=== PATIENT | male | born 1935 | race Caucasian/White ===

== ENCOUNTER 2021-09-15 18:43 | Observation (INO) | payer MEDICARE, SELFPAY ==
--- NOTE | ~2021-09-15 | CT_ITS ---
EXAMINATION: CT brain wo con EXAM DATE: 09/16/2021 00:52 INDICATION: Dizziness. TECHNIQUE: Spiral CT of the head was performed without contrast. Axial, coronal and sagittal images were reviewed. The dose-length product (DLP) for this examination was 681.00 mGy-cm. The exposure w as tailored according to patient size, and iterative reconstruction (ASIR) was used as additional dos e reduction technique. There is no prior study for comparison. FINDINGS: There is no acute intraparenchymal hemorrhage. No evidence of intraparenchymal brain mass lesion. No evidence of acute infarction. There is no mass effect or midline shift. The ventricles are normal in size. There are no extra-axial collections. There are no acute calvarial fractures. T here is moderate cerebral atrophy. Patient has had bilateral ocular lens surgery. Soft tissue is unr emarkable. The visualized sinuses and mastoid air cells are well aerated. IMPRESSION: 1. No acute intracranial findings. Reviewed, dictated and finalized at location A. M PRESSER
--- NOTE | ~2021-09-15 | US_ITS ---
EXAMINATION: US carotid duplex BI DATE: 09/16/2021 12:51 INDICATION: Presyncope. Cerebral atherosclerosis. TECHNIQUE: Grayscale, color Doppler, and pulsed Doppler images of the cervical carotid arteries were obtained. The degree of vessel stenosis is placed in one of the following categories: normal, <50%, 5 0-69%, >=70% but less than near-occlusion, near-occlusion, or total occlusion. Note that percent sten osis relative to normal distal artery lumen diameter is indirectly measured from velocity measurement s as described by Jose A, et al. Radiology 2003; 229:340-346. COMPARISON: None. FINDINGS: RIGHT: The right common carotid artery (CCA) peak systolic velocity (PSV) is 92 cm/s. The right internal car otid artery (ICA) PSV is 49 cm/s. The right ICA end-diastolic velocity (EDV) is 15 cm/s. The right IC A/CCA PSV ratio is 0.5. Grayscale and color Doppler images yield an estimate of <50% diameter reducti on from plaque in the ICA. The external carotid artery (ECA) PSV is 64 cm/s. There is antegrade flow in the right vertebral artery. LEFT: The left CCA PSV is 53 cm/s. The left ICA PSV is 48 cm/s. The left ICA EDV is 10 cm/s. The left ICA/C CA PSV ratio is 0.9. Grayscale and color Doppler images yield an estimate of <50% diameter reduction from plaque in the ICA. The ECA PSV is 66 cm/s. There is antegrade flow in the left vertebral artery. IMPRESSION: 1. <50% stenosis in the right internal carotid artery. 2. <50% stenosis in the left internal carotid artery. Reviewed, dictated and finalized at location A. INUOUS IMPROVEMENT LEAD
--- NOTE | ~2021-09-15 | XR_ITS ---
EXAMINATION: XR chest 2V EXAM DATE: 09/16/2021 00:56 INDICATION: Dizziness, vertigo this evening. TECHNIQUE: Frontal and lateral projections of the chest obtained and reviewed. There is no prior dillon dy for comparison. FINDINGS: The lungs are hyperinflated which can be seen with chronic obstructive pulmonary disease ( a clinical diagnosis of functional impairment), but is not diagnostic of it. The lungs are clear. Th ere are no pleural effusions. The cardiomediastinal silhouette is within normal limits. There is no pneumothorax suspected. The bones and soft tissues are unremarkable. IMPRESSION: 1. No acute cardiopulmonary findings. 2. Hyperinflation. Reviewed, dictated and finalized at location A. TION CLASSIFIER
[2021-09-15 19:18] VITALS: BP 149/88; PULSE 78; RESP 20; TEMP 37.1; O2SAT 99
[2021-09-15 20:48] VITALS: BP 133/95; PULSE 73; RESP 17; TEMP 36.4; O2SAT 97
[2021-09-16] VITALS (13 sets, daily range): BP systolic 128–167; BP diastolic 82–97; PULSE 66–135; RESP 18–24; TEMP 36–36.8; O2SAT 96–100; BMI 24.9
--- NOTE | 2021-09-16 | ECHO_ITS ---
Patient Info Name: Glenn Jenkins Age: 86 years : 1935 Gender: Male Ht: 72 in Wt: 183 lbs BSA: 2.06 m2 BP: 167 / 95 mmHg Technical Quality: Fair Exam Date: 09/16/2021 11:32 AM Exam Location: [facility] Patient Status: Inpatient Admit Date: 09/16/2021 Staff Ordering Physician: Inocencio Parry Conveyor Installer: Sandhya Orozco RDCS Attending Provider: Marylin Ventura MD Referring Physician: Sohan MARIE; Exam Type: CA echo doppler w bubble study Study Info Indications R55 - Syncope and collapse Complete two-dimensional, color flow and Doppler transthoracic echocardiogram is performed with agitated saline. Contrast/Agitated Saline Contrast/Ag. Saline: Agitated Saline Amount: 30.00 ml Existing IV Access: Yes IV Access Condition: patent with no signs of infiltration Summary 1. LV size is at upper limits of normal, mild LVH; normal LV systolic function, ejection fraction approximately 55%; indeterminate diastolic function. Normal atrial size; no interatrial shunt on injection of agitated normal saline; image quality somewhat suboptimal. Normal mitral valve structure, no significant MR. Mild aortic valve sclerosis, no hemodynamically significant stenosis. Trace to mild aortic regurgitation. Unable to assess RVSP due to inadequate TR jet. Left Ventricle Left ventricular chamber dimension is normal. Left ventricular systolic function is normal, estimated at 50-55%. There is mildly increased left ventricular wall thickness. The left ventricular diastolic function is indeterminate. Right Ventricle Right ventricular chamber dimension is normal. Right ventricular systolic function is normal. Left Atria Left atrial chamber dimension is normal. Right Atria Right atrial chamber dimension is normal. Atrial Septum Intact interatrial septum visualized by agitated saline imaging. Aortic Valve There is mild aortic valve sclerosis. There is no aortic valve stenosis. There is trace aortic valve regurgitation. Pulmonic Valve The pulmonic valve is not well visualized. There is trace pulmonic regurgitation. Mitral Valve The mitral valve has normal leaflets. There is no mitral valve regurgitation. Tricuspid Valve The tricuspid valve leaflets are normal. There is trace tricuspid valve regurgitation. Pericardium/Pleural The pericardium appears normal. There is no pericardial effusion. Inferior Vena Cava Normal inferior vena cava with >50% collapse upon inspiration consistent with normal right atrial pressure, 10 mmHg. Aorta The aortic root size at the sinus of Valsalva is normal. Left Ventricular Outflow Tract Name Value Normal LVOT 2D LVOT Diameter 2.1 cm LVOT Doppler LVOT Peak Gradient 5 mmHg LVOT Mean Gradient 3 mmHg LVOT VTI 21 cm LVOT VTI/AV VTI Ratio 0.8 LVOT Stroke Volume 76 ml LVOT CO 5.6 l/min LVOT CI 2.7
--- NOTE | 2021-09-16 00:29 | ECG_ITS ---
Measurements Intervals [place] Rate: 63 P: -74 IA: 299 QRS: -75 QRSD: 158 T: 30 QT: 466 QTc: 480 Interpretive Statements SINUS RHYTHM WITH FIRST DEGREE AV BLOCK RIGHT BUNDLE BRANCH BLOCK LEFT ANTERIOR FASCICULAR BLOCK BASELINE ARTIFACT- I, II, III, AVR, AVL, AVF, V1-V2 ABNORMAL ECG Electronically Signed On 09-16-2021 6:19:07 CARD MOUNTER by Allan Saldana D.O.
--- NOTE | 2021-09-16 00:41 | ED.DIZZY ---
HPI - Dizziness General Chief Complaint: Dizziness <CARLA Yee Last Filed: 09/16/21 02:58> Stated Complaint: hypertension <CARLA Yee Last Filed: 09/16/21 02:58> Time Seen by Provider: 09/16/21 00:28 <CARLA Yee Last Filed: 09/16/21 02:58> Source: patient and family <CARLA Yee Last Filed: 09/16/21 02:58> Mode of arrival: wheelchair <CARLA Yee Last Filed: 09/16/21 02:58> Limitations: no limitations <CARLA Yee Last Filed: 09/16/21 02:58> History of Present Illness HPI Narrative: This is an 86-year-old male that presents to the emergency department for lightheadedness. Reports he had just finished dinner and stood up and felt lightheaded. He attempted to walk back to his room and had another episode of lightheadedness. He denies any associated symptoms. Denies fever, chest pain, shortness of breath, abdominal pain, vomiting, or dysuria. <CARLA Yee Last Filed: 09/16/21 02:58> Related Data Home Medications: Home Medications Medication Instructions Recorded Confirmed allopurinol 300 mg PO DAILY 09/16/21 aspirin 81 mg PO DAILY 09/16/21 atorvastatin 20 mg PO HS 09/16/21 losartan 50 mg PO DAILY 09/16/21 omeprazole 20 mg PO BID 09/16/21 rivaroxaban [Xarelto] 20 mg PO DAILY 09/16/21 <CARLA Yee Last Filed: 09/16/21 02:58> Allergies/Adverse Reactions: Allergies Allergy/AdvReac Type Severity Reaction Status Date / Time Penicillins Allergy Rash Verified 09/15/21 19:21 <CARLA Yee Last Filed: 09/16/21 02:58> Review of Systems Review of Systems: CONSTITUTIONAL: Denies fever CARDIOVASCULAR: Denies chest pain, palpitations RESPIRATORY: Denies dyspnea. GASTROINTESTINAL: Denies abdominal pain, nausea, vomiting GENITOURINARY: Denies dysuria NEUROLOGIC: Denies numbness, or weakness. <Claudia Spencer PA-C - Last Filed: 09/16/21 02:58> All systems reviewed & are unremarkable except as noted in HPI and below <Claudia Spencer PA-C - Last Filed: 09/16/21 02:58> [facility] Past Medical History Medical History: Medical History (Updated 09/16/21 @ 02:50 by Claudia Spencer PA-C) History of gastroesophageal reflux (GERD) History of hyperlipidemia <Claudia Spencer PA-C - Last Filed: 09/16/21 02:58> Social History Social History: Social History (Updated 09/16/21 @ 00:43 by Claudia Spencer PA-C) Smoking status: Never smoker <Claudia Spencer PA-C - Last Filed: 09/16/21 02:58> Exam Narrative: GENERAL: Well-appearing, well-nourished, and in no acute distress. HEAD: Normocephalic, atraumatic. EYES: PERRLA and EOMI. ENT: Nares clear, no rhinorrhea or epistaxis. Mucous membranes moist. Oropharynx without tonsillar hypertrophy exudate or other lesions. Bilateral TMs pearly rodney non-bulging NECK: Supple. No adenopathy or masses. CHEST: Clear to auscultation. No respiratory distress. No wheezes rales or rhonchi HEART: Regular rate and rhythm. No murmur heard. Normal peripheral pulses. ABDOMEN: Soft, nontender, nondistended, normal active bowel sounds. EXTREMITIES: Normal range of motion. No edema. SKIN: Warm, dry, no rash. NEURO: No focal deficits. Alert and oriented x3. Cranial nerves II through XII grossly intact. Normal [id number] PSYCH: Normal mood and affect <Claudia Spencer PA-C - Last Filed: 09/16/21 02:58> Course Vital Signs Vital signs: Vital Signs Temperature 37.1 C 09/15/21 19:18 Pulse Rate 78 09/15/21 19:18 Respiratory Rate 20 09/15/21 19:18 Blood Pressure 149/88 H 09/15/21 19:18 Pulse Oximetry 99 09/15/21 19:18 Temperature 36.4 C 09/15/21 20:48 Pulse Rate 83 09/16/21 03:26 Respiratory Rate 20 09/16/21 03:26 Blood Pressure 138/97 H 09/16/21 03:26 Pulse Oximetry 96 09/16/21 03:26 <Claudia Spencer PA-C - Last Filed: 09/16/21 02:58> MDM - Dizziness [facility] Narrative Med
[2021-09-16 01:26] LABS: Basophils Absolute Auto 0.1 K/mm3 (0.0-0.1); Basophils Percent Auto 1.1 % (0.2-1.2); Eosinophils Absolute Auto 0.4 K/mm3 (0-0.3); Eosinophils Percent Auto 4.6 % (0-4.4); Hematocrit 40.2 % (42.0-52.0); Hemoglobin 12.7 g/dL (14.0-18.0); Immature Granulocyte Absolute 0.02 K/mm3 (0.00-0.031); Immature Granulocyte Percent A 0.3 % (0-0.5); Lymphocytes Absolute Auto 1.26 K/mm3 (0.9-3.2); Lymphocytes Percent Auto 16.7 % (18.3-44.2); Mean Corpuscular HGB Conc 31.6 g/dl (32-36); Mean Corpuscular Hemoglobin 26.8 pg (26-34); Mean Corpuscular Volume 84.8 fl (80-100); Mean Platelet Volume 11.8 fl (7.4-10.4); Monocytes Absolute Auto 0.8 K/mm3 (0.1-0.6); Monocytes Percent Auto 10.8 % (2.6-8.5); Neutrophils Percent Auto 66.5 % (45.5-73.1); Platelet Count Result 197 k/mm3 (150-375); Red Blood Count 4.74 M/mm3 (4.6-6.20); White Blood Count 7.6 K/mm3 (4.5-10.0)
[2021-09-16 01:37] LABS: Alanine Aminotransferase 22 U/L (4-50); Albumin Level 4.1 g/dL (3.5-5.1); Alkaline Phosphatase 80 U/L (38-126); Anion Gap 11 mmol/L (8-16); Aspartate Amino Transferase 32 U/L (17-59); Bilirubin,Total 0.5 mg/dL (0.2-1.3); Blood Urea Nitrogen 24 mg/dL (9-20); Calcium 9.5 mg/dL (8.4-10.2); Carbon Dioxide 23 mmol/L (22-30); Chloride 106 mmol/L (98-107); Estimated CRCL calculation 65 ml/min; Estimated Glomerular Filt Rate > 60; Glucose 131 mg/dL (65-110); Potassium 3.5 mmol/L (3.4-5.0); Sodium 140 mmol/L (137-145)
[2021-09-16] MEDS: SODIUM CHLORIDE 0.9% IV 1,000 ML 999 ML IV CONT (03:30)
[2021-09-16 03:58] LABS: Add Urine Microscopic? YES; Appearance Urine Clear (Clear); Bilirubin Urine Negative (Negative); Blood Urine Negative (Negative); Color Urine Yellow (Yellow); Glucose Urine UA Negative (Negative); Ketones Urine Negative (Negative); Leukocyte Esterase Ur Negative LEU/UL (Negative); Nitrate Urine Negative (Negative); Protein Urine Negative (Negative); RBC Urine 0-2 /hpf (0-2); Specific Grav Ur 1.016 (1.001-1.035); Urobilinogen Urine Negative mg/dL (<2.0); WBC Urine 0-3 /hpf
[2021-09-16 04:39] LABS: SARS-CoV-2 RNA PCR Positive
--- NOTE | 2021-09-16 06:33 | ADMGEN ---
This patient, Glenn Jenkins, was admitted to 3 [facility] Surg Room 302-01. Patient/family oriented to hospital policies and general routines including ID bracelet, bed and alarms, visiting hours, pain management, procedures, bathroom and other care routines, personal items, smoking policy, room service/diet, and visiting hours. Information on how to activate the Rapid Response Team has been discussed. Patient/Family are encouraged to report perceived risks to care and to ask questions if they do not understand what they are told or what they should do.
[2021-09-16] MEDS: LACTATED RINGERS 1,000 ML 90 ML IV CONT (07:25)
--- NOTE | 2021-09-16 08:30 | PM.IMHP ---
H&P: HPI History of Present Illness Date/Time: 09/16/21 08:30 Chief Complaint: Lightheaded dizziness upon standing Narrative: Patient is a 86-year-old male with a past medical history of AFib, hypertension, pituitary tumor, Guerrier's esophagus, hyperlipidemia who presented to the ED after having a couple episodes of lightheadedness and dizziness at [facility]. According to the patient he was attempting to go back to his room from dinner when he got sick. Patient could go into details about really what happened however he did say he got a little lightheaded. Patient told me to call his daughter for further information. Patient's daughter Emily explained that the patient was going back to his room from dinner from the dining cooper when he stood up and got very lightheaded and dizzy. They sat him down and put him in a wheelchair take him up to his room in the got him to his room she asked them to take a blood pressure in at that time his blood pressure was 170/103. Emily stated that she did not think that he looked good and requested that the patient go to the ED. in the ED orthostatic blood pressures were positive according to the note in the ED record. However I am not seeing any orthostatic blood pressures noted in the chart. Emily did say that when patient was seen Cardiology that the advertising sales consultant increased his losartan to 100 mg p.o. daily and he passed out. His primary care provider decrease the dose back down to 50 mg p.o. daily. Blood pressure remains still high at 160 7/95 however this morning patient was unable to urinate. Patient stated that he felt like he had to go have a BM. And asked if he go to the bathroom. Patient was ambulated to the bathroom where he had a very large bowel movement. Patient stated that after the bowel movement he felt a whole lot better and did not feel dizzy when he stood nor did he have any issues of walking back to bed. It was also reported the patient had greater than 700 mL of urine in his bladder and was unable to void even with standing. Taylor catheter was inserted at this time for urinary retention. Patient has also been started on finasteride and a voiding trial will be performed in the morning. Labs seem to be stable at this time. Patient also tested positive for COVID-19 in the ED however chest x-ray does not show any signs of pneumonia. Emily stated the patient has been vaccinated x3 with Pfizer. Please also stated that the patient had tested positive at the beginning of August and was quarantined for 10 days at the alf and his last ate quarantine was September 12, 2021. Emily stated the patient had no issues with shortness of breath or COVID like symptoms throughout the entire time of quarantine. Patient currently also denies chest pain, nausea, vomiting, fevers, sweats, chills, abnormal swelling, palpitations, cough, weakness, fatigue, headache, numbness and tingling, visual changes or hearing changes. Patient did state that he gets a little short of breath however he states most of the time is with walking up and down stairs. Patient also stated that he has been having issues with diarrhea he has been going a little every day however after today's large bowel movement he feels a whole lot better than he has. Patient denies any falls or loss of consciousness through any of these events. Patient denies any stroke-like symptoms including weakness to 1 side, aphasia, or swallowing problems. Patient does admit to having memory problems however he stated that he usually has his and his daughter to help him however his about 5 months ago. Patient is being admitted under observation status. Review of Systems Review of Systems: All systems reviewed & are unremarkable except as noted in HPI and below [facility] Past Medical History Medical History (Updated 09/16/21 @ 10:57 by INDRA Kennedy) Afib Barretts esophagus BPH (benign prostatic hyperplasia) Gout History of gastroe
[2021-09-16] MEDS: RIVAROXABAN 20 MG TABLET PO (12:55)
[2021-09-16] MEDS: allopurinoL 300 MG TABLET PO (12:55)
[2021-09-16] MEDS: ASPIRIN 81 MG CHEWABLE TABLET PO (12:55)
[2021-09-16] MEDS: LOSARTAN POTASSIUM 50 MG TABLET PO (14:32)
[2021-09-16] MEDS: PANTOPRAZOLE 40 MG TABLET PO (16:37)
--- NOTE | 2021-09-16 18:36 | PC.NURSE ---
On 09/16/21, the student, [ Tita Lopez], provided care and completed [facility] documentation on this patient. I have reviewed the student's documentation and agree with the findings.
[2021-09-16] MEDS: ATORVASTATIN 20 MG TABLET PO (21:11)
[2021-09-17] VITALS: PULSE 92
[2021-09-17 04:00] VITALS: PULSE 92
[2021-09-17 05:45] VITALS: BP 150/84; PULSE 68; RESP 18; TEMP 36.6; O2SAT 99
[2021-09-17 06:34] LABS: Basophils Absolute Auto 0.1 K/mm3 (0.0-0.1); Eosinophils Absolute Auto 0.5 K/mm3 (0-0.3); Eosinophils Percent Auto 7.5 % (0-4.4); Hematocrit 37.2 % (42.0-52.0); Hemoglobin 11.9 g/dL (14.0-18.0); Immature Granulocyte Absolute 0.04 K/mm3 (0.00-0.031); Immature Granulocyte Percent A 0.6 % (0-0.5); Lymphocytes Absolute Auto 1.05 K/mm3 (0.9-3.2); Lymphocytes Percent Auto 15.1 % (18.3-44.2); Mean Corpuscular Hemoglobin 26.2 pg (26-34); Mean Corpuscular Volume 81.8 fl (80-100); Mean Platelet Volume 11.7 fl (7.4-10.4); Monocytes Absolute Auto 0.7 K/mm3 (0.1-0.6); Monocytes Percent Auto 10.2 % (2.6-8.5); Neutrophils Absolute Auto 4.6 K/mm3 (1.3-6.7); Neutrophils Percent Auto 65.6 % (45.5-73.1); Platelet Count Result 169 k/mm3 (150-375); Red Blood Count 4.55 M/mm3 (4.6-6.20)
--- NOTE | 2021-09-17 06:45 | P.DS_ITS ---
DS: Admitting Diagnosis Discharge Date 09/17/21 0645 Admitting Diagnosis Orthostatic Hypotension DS: Discharge Diagnosis Discharge Diagnosis (1) Dizziness and giddiness: Code(s): R42 - Dizziness and giddiness Status: Acute Assessment and Plan: * Reports lightheaded and dizziness with position changes * Education about slow and steady position changes * Orthostatic BP ordered * Echo showed EF 55% with left vent diastolic dysfunction indeterminate * Carotid <50% bilateral stenosis * Head CT shows no acute intracranial problems * PT/OT (2) Orthostatic hypotension: Code(s): I95.1 - Orthostatic hypotension Status: Acute Assessment and Plan: * Lay:154/84, Sittin/87, Standin/87 * Education about slow position changes * PT/OT (3) Hypertension: Code(s): I10 - Essential (primary) hypertension Status: Acute Assessment and Plan: * BP is 167/95 * Continue home losartan * Orthostatic pressures seen in the am * Trend blood pressure * Adjust therapy as indicated (4) BPH (benign prostatic hyperplasia): Code(s): N40.0 - Benign prostatic hyperplasia without lower urinary tract symptoms Status: Acute Assessment and Plan: * Unable to void * Bladder scan identified >700ml in the bladder * Urinary catheter installed * Trend urine output * voiding trial * Start finasteride 5mg PO daily (5) Gout: Code(s): M10.9 - Gout, unspecified Status: Acute Assessment and Plan: * No issues noted at this time * Continue home medications (6) 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 Fib * Bleeding precautions (7) Afib: Code(s): I48.91 - Unspecified atrial fibrillation Status: Inactive Assessment and Plan: * EKG on arrival showed SR * History of A. Fib * Sees cardiology at [facility] * Telemonitor (8) COVID-19: Code(s): U07.1 - COVID-19 Status: Acute Assessment and Plan: * Test positive at the [facility] beginning of [facility] * History of COVID-19 * Completed 10 days of isolation at the [facility] with last day being 09/12/21 * Vaccinated x 3 with pfizer * Test positive here, most like residual * Chest xray shows no PNA * No need to isolate at this time * No need for supplemental O2, which includes no indication for treatment either DS: Summary Hospital Course Hospital Course: Patient is a 86-year-old male with a past medical history of AFib, hypertension, pituitary tumor, Guerrier's esophagus, hyperlipidemia who presented to the ED after having a couple episodes of lightheadedness and dizziness at [facility]. According to patient and the daughter the patient had an episode or 2 of dizziness lightheadedness upon standing. It was noted that his blood pressure was elevated. Orthostatic blood pressures were performed here and did show the patient does have a little bit of hypotension with position change however with standing his blood pressure only went to 128/87. Echo Doppler was performed and showed an EF of 50-55% with an indeterminate diastolic dysfunction. Carotid Doppler showed less than 50% stenosis bilaterally.
--- NOTE | 2021-09-17 06:45 | PM.DS ---
DS: Admitting Diagnosis Discharge Date 09/17/21 0645 Admitting Diagnosis Orthostatic Hypotension DS: Discharge Diagnosis Discharge Diagnosis (1) Dizziness and giddiness: Code(s): R42 - Dizziness and giddiness Status: Acute Assessment and Plan: Reports lightheaded and dizziness with position changes Education about slow and steady position changes Orthostatic BP ordered Echo showed EF 55% with left vent diastolic dysfunction indeterminate Carotid <50% bilateral stenosis Head CT shows no acute intracranial problems PT/OT (2) Orthostatic hypotension: Code(s): I95.1 - Orthostatic hypotension Status: Acute Assessment and Plan: Lay:154/84, Sittin/87, Standin/87 Education about slow position changes PT/OT (3) Hypertension: Code(s): I10 - Essential (primary) hypertension Status: Acute Assessment and Plan: BP is 167/95 Continue home losartan Orthostatic pressures seen in the am Trend blood pressure Adjust therapy as indicated (4) BPH (benign prostatic hyperplasia): Code(s): N40.0 - Benign prostatic hyperplasia without lower urinary tract symptoms Status: Acute Assessment and Plan: Unable to void Bladder scan identified >700ml in the bladder Urinary catheter installed Trend urine output voiding trial Start finasteride 5mg PO daily (5) Gout: Code(s): M10.9 - Gout, unspecified Status: Acute Assessment and Plan: No issues noted at this time Continue home medications (6) care home (current) use of anticoagulants: Code(s): Z79.01 - care home (current) use of anticoagulants Status: Acute Assessment and Plan: Continue Xarelto per home dose History of A. Fib Bleeding precautions (7) Afib: Code(s): I48.91 - Unspecified atrial fibrillation Status: Inactive Assessment and Plan: EKG on arrival showed SR History of A. Fib Sees cardiology at [facility] (8) COVID-19: Code(s): U07.1 - COVID-19 Status: Acute Assessment and Plan: Test positive at the [facility] living beginning of Aug History of COVID-19 Completed 10 days of isolation at the senior living with last day being 09/12/21 Vaccinated x 3 with pfizer Test positive here, most like residual Chest xray shows no PNA No need to isolate at this time No need for supplemental O2, which includes no indication for treatment either DS: Summary Hospital Course Hospital Course: Patient is a 86-year-old male with a past medical history of AFib, hypertension, pituitary tumor, Guerrier's esophagus, hyperlipidemia who presented to the ED after having a couple episodes of lightheadedness and dizziness at [facility]. According to patient and the daughter the patient had an episode or 2 of dizziness lightheadedness upon standing. It was noted that his blood pressure was elevated. Orthostatic blood pressures were performed here and did show the patient does have a little bit of hypotension with position change however with standing his blood pressure only went to 128/87. Echo Doppler was performed and showed an EF of 50-55% with an indeterminate diastolic dysfunction. Carotid Doppler showed less than 50% stenosis bilaterally. Patient was also unable to urinate and bladder scan was performed and showed greater than 700 mL in his bladder. Taylor catheter was installed and voiding trial was performed. According the patient it sounds like he has BPH with inability to start a good stream. He was also noted by his daughter the patient does have inability to urinate less standing. Patient also had a large bowel movement which he stated that has made him feel a lot better. PT and OT was ordered and had evaluated patient for mobility and are currently recommending a wheeled walker for further mobility at
[2021-09-17 06:54] LABS: Alanine Aminotransferase 19 U/L (4-50); Albumin Level 3.4 g/dL (3.5-5.1); Alkaline Phosphatase 59 U/L (38-126); Anion Gap 4 mmol/L (8-16); Aspartate Amino Transferase 27 U/L (17-59); Blood Urea Nitrogen 17 mg/dL (9-20); Calcium 8.5 mg/dL (8.4-10.2); Carbon Dioxide 29 mmol/L (22-30); Chloride 106 mmol/L (98-107); Estimated CRCL calculation 58 ml/min; Estimated Glomerular Filt Rate > 60; Glucose 126 mg/dL (65-110); Magnesium 2.1 mg/dL (1.6-2.3); Potassium 3.6 mmol/L (3.4-5.0); Sodium 139 mmol/L (137-145)
[2021-09-17 08:00] VITALS: BP 102/74; PULSE 63; PULSE 97; RESP 24; TEMP 36.2; O2SAT 99
[2021-09-17] MEDS: PANTOPRAZOLE 40 MG TABLET PO ×2 (08:38→16:30)
[2021-09-17] MEDS: LOSARTAN POTASSIUM 50 MG TABLET PO (08:38)
[2021-09-17] MEDS: allopurinoL 300 MG TABLET PO (08:38)
[2021-09-17] MEDS: RIVAROXABAN 20 MG TABLET PO (08:38)
[2021-09-17] MEDS: ASPIRIN 81 MG CHEWABLE TABLET PO (08:38)
[2021-09-17] MEDS: FINASTERIDE 5 MG TABLET PO (08:39)
[2021-09-17 14:00] VITALS: BP 115/79; PULSE 97; RESP 24; TEMP 36.2; O2SAT 99
[2021-09-17 14:10] VITALS: BP 115/75; BP 115/79
== END 2021-09-17 17:20 | disposition home or self-care (01) ==
LOC: ANHED 09-16 03:52 → ANH3MEDSUR 09-16 14:32
PROVIDERS: Nurse Practitioner; Physician Assistant; Admitting Provider Internal Medicine; Emergency Provider Emergency Medicine; PCP Family Medicine; Visit Provider Internal Medicine
DX: I95.1 Orthostatic hypotension (principal); R42 Dizziness and giddiness; U07.1 COVID-19; I48.91 Unspecified atrial fibrillation; E78.5 Hyperlipidemia, unspecified; I10 Essential (primary) hypertension; M10.9 Gout, unspecified; N40.0 Benign prostatic hyperplasia without lower urinary tract symptoms; Z79.01 Long term (current) use of anticoagulants; Z79.82 Long term (current) use of aspirin
CPT/HCPCS: 36415; 70450; 71046; 80053; 81001; 83735; 85025; 93005; 93306; 93880; 96360; 96361; 96375; 97161; 97165; 99285; A9270; C9803; G0378; J1940; J7030; J7040; J7120; U0003; U0005

== ENCOUNTER 2022-12-25 10:07 | Emergency (ER) | payer MEDICARE, SELFPAY ==
--- NOTE | ~2022-12-25 | XR_ITS ---
EXAMINATION: XR lumbar spine 2-3V DATE: 12/25/2022 13:32 INDICATION: Back pain. TECHNIQUE: 3 views of lumbar spine were obtained. COMPARISON: None. FINDINGS: Bone alignment is normal. Vertebral body heights are normal. There is mildly decreased disc height at T12-L1 and L1-L2. There is moderately decreased disc height at L4-L5 and severely decrease d disc height at L5-S1. There is multilevel mild to moderate facet joint osteoarthritis. IMPRESSION: 1. Severe lumbar spondylosis. Reviewed, dictated and finalized at location A.
--- NOTE | ~2022-12-25 | XR_ITS ---
EXAMINATION: XR hand RT min 3V DATE: 12/25/2022 13:31 INDICATION: Right hand swelling. TECHNIQUE: 3 views of right hand were obtained. COMPARISON: None. FINDINGS: Bone alignment is normal. No fracture. There is mild osteoarthritis of triscaphe joint, fir st severe osteoarthritis of first carpometacarpal joint, and moderate osteoarthritis of first-third m etacarpophalangeal joints. There is mild osteoarthritis of most of the interphalangeal joints. There is moderate at first interphalangeal joint and second and third distal interphalangeal joints. There are dystrophic calcifications about the wrist. IMPRESSION: 1. Polyarticular osteoarthritis. Reviewed, dictated and finalized at location A.
--- NOTE | ~2022-12-25 | CT_ITS ---
EXAMINATION: CT brain wo con INDICATION: Head injury COMPARISON: 09/16/2021 TECHNIQUE: Standard unenhanced head CT. The dose-length product (DLP) was 605.33 mGy-cm. The mA was a djusted according to patient size. Iterative reconstruction technique was employed. FINDINGS: There is no acute intraparenchymal hemorrhage. No evidence of mass lesion. No evidence of a cute infarction. There is mild periventricular and subcortical hypodensity probably related to small vessel ischemic disease. There is mild prominence of the sulci and ventricles related to cerebral atr ophy. Intracranial calcified cerebral atherosclerosis is noted. There are no extra-axial collections. There is no mass effect or midline shift. Changes in the globes are likely from ocular lens surgery. There is mild mucosal thickening of the paranasal sinuses. IMPRESSION: 1. No acute intracranial abnormality. 2. Age related findings. Reviewed, dictated and finalized at location B.
--- NOTE | ~2022-12-25 | XR_ITS ---
EXAMINATION: XR wrist RT min 3V DATE: 12/25/2022 13:32 INDICATION: Right wrist pain. TECHNIQUE: 4 views of right wrist were obtained. COMPARISON: None. FINDINGS: Bone alignment is normal. No fracture. There is mild osteoarthritis of triscaphe joint, sev ere osteoarthritis of first carpometacarpal joint, and moderate osteoarthritis of first-third metacar pophalangeal joints. There are dystrophic calcifications about the wrist. IMPRESSION: 1. Polyarticular osteoarthritis. Reviewed, dictated and finalized at location A.
--- NOTE | ~2022-12-25 | XR_ITS ---
AP and lateral views of the right femur Clinical History: Pain Findings: No acute fracture or dislocation is seen. Osseous alignment is anatomic. There is moderate degenerative change of the medial lateral compartments of the knee. There is probable chondrocalcinos is of the menisci. Basilar calcifications are noted. Impression: No fracture or dislocation. Degenerative change of the knee, as detailed above. 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 Reviewed, dictated and finalized at location M. Impression: No fracture or dislocation. Degenerative change of the knee, as detailed above. 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
[2022-12-25 10:09] VITALS: BP 129/79; PULSE 105; RESP 20; TEMP 36.4; O2SAT 99
--- NOTE | 2022-12-25 12:34 | ECG_ITS ---
Measurements Intervals [place] Rate: 80 P: 33 NM: 306 QRS: -77 QRSD: 148 T: 63 QT: 401 QTc: 465 Interpretive Statements SINUS RHYTHM WITH FIRST DEGREE AV BLOCK RIGHT BUNDLE BRANCH BLOCK [120+ ms QRS DURATION, UPRIGHT V1, 40+ ms S IN I/aVL/V4/V5/V6] LEFT ANTERIOR FASCICULAR BLOCK [QRS AXIS <= -45, QR IN I, RS IN II] COMPARED TO ECG 09/16/2021 01:12:19 NO SIGNIFICANT CHANGES Electronically Signed On 12-25-2022 13:51:45 CDT by Jeff Urban M.D.
--- NOTE | 2022-12-25 13:50 | ED.FALL ---
HPI - Fall General Chief Complaint: Fall Stated Complaint: fall, R. hand injury, back pain Time Seen by Provider: 12/25/22 11:52 Source: patient, family and RN notes reviewed Mode of arrival: ambulatory Limitations: no limitations History of Present Illness HPI Narrative: This is an 87 year old male who presents from [facility] for evaluation of right hand pain and back pain. He presents with her daughter who states patient fell on Wednesday. She states that patient has been having low back pain due to bend over to use his walker. His son adjusted his walker but patient was complaining of difficulty due to hand pain. Patient states that he fell on wednesday while getting cleaned up in the bathroom. He states that he was standing up in the bathroom when he slipped and his feet ended up under his bed. He has been walking around. He denies chest pain, rib pain, shortness of breath , back pain, abdominal pain, nausea or vomiting. He does reports right wrist and right hand pain. He does not think he hit his head but he is on chronic anticoagulation. Related Data Home Medications Medication Instructions Recorded Confirmed allopurinol 300 mg tablet 300 mg PO DAILY 09/16/21 09/16/21 aspirin 81 mg tablet 81 mg PO DAILY 09/16/21 09/16/21 atorvastatin 20 mg tablet 20 mg PO HS 09/16/21 09/16/21 losartan 50 mg tablet 50 mg PO DAILY 09/16/21 09/16/21 omeprazole 20 mg tablet,delayed 20 mg PO BID 09/16/21 09/16/21 release rivaroxaban 20 mg tablet (Xarelto) 20 mg PO DAILY 09/16/21 09/16/21 Allergies Allergy/AdvReac Type Severity Reaction Status Date / Time Penicillins Allergy Rash Verified 09/15/21 19:21 Review of Systems Constitutional: Constitutional: Denies weakness Cardiovascular: Cardiovascular: Denies syncope, Denies rapid heart rate, Denies irregular heart rhythm, Denies leg edema and Denies dyspnea Respiratory: Respiratory: Denies chest congestion, Denies hemoptysis, Denies excessive phlegm production and Denies dyspnea Gastrointestinal: Gastrointestinal: Denies abdominal pain, Denies hematochezia, Denies diarrhea and Denies vomiting Genitourinary: Genitourinary: Denies hematuria, Denies dysuria, Denies penile discharge and Denies testicular pain Musculoskeletal: Musculoskeletal: Reports back pain, Reports arthralgias, Denies joint swelling, Denies loss of height and Denies muscle weakness Neurologic: Denies syncope, Denies focal weakness and Denies weakness PMFSH Past Medical History Medical History Afib Barretts esophagus BPH (benign prostatic hyperplasia) Gout History of gastroesophageal reflux (GERD) History of hyperlipidemia Hypertension Pituitary tumor Family History Family History (Updated 09/16/21 @ 10:43 by INDRA Kennedy) Mother Heart disease Hypertension Father Hypertension Heart disease Social History Social History Social History: Patient currently lives at [facility] which he moved in about 5 months ago after his had . Patient appoints Emily as his main decision maker and wishes to be a full code at this time however would not like any life-sustaining measures taken. Emily is going to bring in her copy of advance directives. Patient denies any pets. Smoking status: Former smoker Alcohol intake: former Alcohol use details: quit 48 years ago Substance use: unknown Living arrangements: assisted living Occupation/Education: retired Gender identity (if verbalized by the patient): Male Sexual Orientation (if Verbalized by the Patient): Straight or Heterosexual Spiritual care concerns: No Agree to blood products: Yes Exam Const: General: no acute distress and alert Nutritional Appearance: well nourished Orientation/consciousness: patient oriented x3 HENMT: Head: normal to inspection Face and sinus: normal facial exam Eyes: EOM: E
[2022-12-25 13:51] LABS: Basophils Absolute Auto 0.1 K/mm3 (0.0-0.1); Basophils Percent Auto 0.8 % (0.2-1.2); Eosinophils Absolute Auto 0.1 K/mm3 (0-0.3); Eosinophils Percent Auto 1.5 % (0-4.4); Hemoglobin 13.6 g/dL (14.0-18.0); Immature Granulocyte Absolute 0.03 K/mm3 (0.00-0.031); Immature Granulocyte Percent A 0.4 % (0-0.5); Lymphocytes Absolute Auto 1.04 K/mm3 (0.9-3.2); Mean Corpuscular HGB Conc 33.2 g/dl (32-36); Mean Corpuscular Hemoglobin 28.6 pg (26-34); Mean Corpuscular Volume 86.3 fl (80-100); Mean Platelet Volume 11.1 fl (7.4-10.4); Monocytes Absolute Auto 0.8 K/mm3 (0.1-0.6); Monocytes Percent Auto 10.5 % (2.6-8.5); Neutrophils Absolute Auto 5.9 K/mm3 (1.3-6.7); Neutrophils Percent Auto 73.8 % (45.5-73.1); Platelet Count Result 180 k/mm3 (150-375); Red Blood Count 4.75 M/mm3 (4.6-6.20); Red Cell Distribution Width 15.2 % (11.5-14.5)
[2022-12-25 14:03] LABS: Alanine Aminotransferase 22 U/L (6-50); Albumin Level 3.9 g/dL (3.5-5.1); Alkaline Phosphatase 72 U/L (38-126); Anion Gap 8 mmol/L (8-16); Aspartate Amino Transferase 25 U/L (17-59); Bilirubin,Total 0.6 mg/dL (0.2-1.3); Blood Urea Nitrogen 28 mg/dL (9-20); Calcium 8.5 mg/dL (8.4-10.2); Carbon Dioxide 27 mmol/L (22-30); Chloride 104 mmol/L (98-107); Estimated CRCL calculation 57 ml/min; Estimated Glomerular Filt Rate > 60; Glucose 117 mg/dL (65-110); Potassium 3.8 mmol/L (3.4-5.0); Sodium 139 mmol/L (137-145)
[2022-12-25 15:26] LABS: Appearance Urine Clear (Clear); Bacteria Urine None Seen /hpf; Bilirubin Urine Negative (Negative); Blood Urine Negative (Negative); Color Urine Yellow (Yellow); Glucose Urine UA Negative (Negative); Ketones Urine Negative (Negative); Leukocyte Esterase Ur Negative LEU/UL (Negative); Nitrate Urine Negative (Negative); Non Pathogenic Casts 0-2; Protein Urine Trace mg/dL (Negative); RBC Urine 0-2 /hpf (0-2); Specific Grav Ur 1.016 (1.001-1.035); Squamous Epithelial Cell Urine None seen /hpf (Few); Urobilinogen Urine 0.2 mg/dL (<2.0); WBC Urine 0-5 /hpf; pH Urine 5.5 (5.0-9.0)
[2022-12-25 15:37] LABS: Add Urine Microscopic? YES
[2022-12-25] MEDS: COLCHICINE 0.6 MG TABLET 1.2 MG PO (16:10)
== END 2022-12-25 16:37 ==
PROVIDERS: Emergency Provider General Practice; PCP Student in an Organized Health Care Education/Training Program
DX: M54.50 Low back pain, unspecified (principal); M10.9 Gout, unspecified; I48.91 Unspecified atrial fibrillation; I10 Essential (primary) hypertension; E78.5 Hyperlipidemia, unspecified; N40.0 Benign prostatic hyperplasia without lower urinary tract symptoms; K22.70 Barrett's esophagus without dysplasia; K21.9 Gastro-esophageal reflux disease without esophagitis; Z87.891 Personal history of nicotine dependence; Z79.82 Long term (current) use of aspirin; Z79.01 Long term (current) use of anticoagulants; M47.816 Spondylosis without myelopathy or radiculopathy, lumbar region; I44.0 Atrioventricular block, first degree; I45.2 Bifascicular block; M19.041 Primary osteoarthritis, right hand; M18.9 Osteoarthritis of first carpometacarpal joint, unspecified; M19.031 Primary osteoarthritis, right wrist; R93.6 Abnormal findings on diagnostic imaging of limbs; W01.0XXA Fall on same level from slipping, tripping and stumbling without subsequent striking against object, initial encounter
CPT/HCPCS: 36415; 70450; 72100; 73110; 73130; 73552; 80053; 81001; 85025; 93005; 99284; A9270

== ENCOUNTER 2023-02-20 07:13 | Observation (INO) | payer MEDICARE, SELFPAY ==
[2023-02-20] VITALS (40 sets, daily range): BP systolic 107–150; BP diastolic 67–111; PULSE 72–111; RESP 13–30; TEMP 36.1–37; O2SAT 80–100; BMI 26.1
--- NOTE | ~2023-02-20 | CT_ITS ---
EXAMINATION: CT brain wo con DATE: 02/21/2023 07:41 INDICATION: Dizziness TECHNIQUE: Computed tomography (CT) of the head was performed without intravenous contrast. The mA wa s adjusted according to patient size. Iterative reconstruction technique was employed. Exam dose: 60 5.33 mGy-cm total exam DLP. COMPARISON: 12/25/2022 CT brain FINDINGS: Prominent bilateral carotid siphon internal carotid artery calcifications and mild vertebra l artery calcifications. There is nonspecific diminished attenuation of the cerebral white matter, li kerri due to chronic small vessel ischemic changes. There is prominent cerebral volume loss, moderately prominent cerebellar volume loss. No intracranial mass lesion or hemorrhage or cerebrovascular accident, midline shift or mass effect i s detected. No subdural or epidural hematoma. No fracture or bone destruction of the cranial vault. The mastoid air cells and paranasal sinuses are unremarkable. IMPRESSION: Cerebral and cerebellar atrophy Cerebral atherosclerosis and chronic small vessel ischemic changes of cerebral white matter No acute intracranial finding or significant change since 12/25/2022 Reviewed, dictated and finalized at Location A. Reviewed, dictated and finalized at location A.
--- NOTE | ~2023-02-20 | XR_ITS ---
XR chest 2V DATE: 02/20/2023 08:31 INDICATION: Cough, productive. Weakness. TECHNIQUE: AP and lateral views COMPARISON: September 16, 2021 2 view chest FINDINGS: There is cardiomegaly. Is aortic calcification, ectasia and tortuosity. No hilar or mediast inal enlargement. Moderate hyperinflation of the lungs. No pulmonary infiltrate or consolidation, pleural effusion or p ulmonary vascular congestion or pneumothorax. Degenerative spurring of the thoracic and lumbar spine. Osteopenia. IMPRESSION: Moderate hyperinflation; no active pulmonary disease Cardiac megaly and aortic atherosclerosis Reviewed, dictated and finalized at location A.
--- NOTE | ~2023-02-20 | US_ITS ---
EXAMINATION: US carotid duplex BI DATE: 02/21/2023 07:51 INDICATION: Dizziness. TECHNIQUE: Grayscale, color Doppler, and pulsed Doppler images of the cervical carotid arteries were obtained. The degree of vessel stenosis is placed in one of the following categories: normal, <50%, 5 0-69%, >=70% but less than near-occlusion, near-occlusion, or total occlusion. Note that percent sten osis relative to normal distal artery lumen diameter is indirectly measured from velocity measurement s as described by Jose A, et al. Radiology 2003; [id number]. COMPARISON: None. FINDINGS: RIGHT: The right common carotid artery (CCA) peak systolic velocity (PSV) is 66 cm/s. The right internal car otid artery (ICA) PSV is 39 cm/s. The right ICA end-diastolic velocity (EDV) is 15 cm/s. The right IC A/CCA PSV ratio is 0.6. Grayscale and color Doppler images yield an estimate of <50% diameter reducti on from plaque in the ICA. There is antegrade flow in the right vertebral artery. LEFT: The left CCA PSV is 61 cm/s. The left ICA PSV is 46 cm/s. The left ICA EDV is 17 cm/s. The left ICA/C CA PSV ratio is 0.7. Grayscale and color Doppler images yield an estimate of <50% diameter reduction from plaque in the ICA. There is antegrade flow in the left vertebral artery. IMPRESSION: 1. <50% stenosis in the right internal carotid artery. 2. <50% stenosis in the left internal carotid artery. Reviewed, dictated and finalized at location E.
--- NOTE | 2023-02-20 08:02 | ECG_ITS ---
Measurements Intervals [place] Rate: 79 P: 35 [place]: 305 QRS: -83 QRSD: 161 T: 13 QT: 435 QTc: 500 Interpretive Statements SINUS RHYTHM WITH SINUS ARRHYTHMIA MARKED WITH FIRST DEGREE AV BLOCK RIGHT BUNDLE BRANCH BLOCK LEFT ANTERIOR FASCICULAR BLOCK ABNORMAL ECG COMPARED TO ECG 12/25/2022 12:55:24 SINUS ARRHYTHMIA NOW PRESENT Electronically Signed On 02-20-2023 8:52:09 CDT by Allan Saldana D.O.
[2023-02-20 08:38] LABS: Magnesium 1.8 mg/dL (1.6-2.3)
[2023-02-20 08:39] LABS: Alanine Aminotransferase 28 U/L (6-50); Albumin Level 4.3 g/dL (3.5-5.1); Alkaline Phosphatase 75 U/L (38-126); Anion Gap 8 mmol/L (8-16); Aspartate Amino Transferase 34 U/L (17-59); Bilirubin,Total 1.1 mg/dL (0.2-1.3); Blood Urea Nitrogen 20 mg/dL (9-20); Calcium 8.8 mg/dL (8.4-10.2); Carbon Dioxide 27 mmol/L (22-30); Chloride 101 mmol/L (98-107); Estimated CRCL calculation 63 ml/min; Estimated Glomerular Filt Rate > 60; Glucose 163 mg/dL (65-110); Potassium 3.7 mmol/L (3.4-5.0); Sodium 136 mmol/L (137-145)
[2023-02-20 08:48] LABS: NT Pro B Type Natriuretic Pept 1340 pg/mL (19.9-100)
[2023-02-20 08:50] LABS: Basophils Absolute Auto 0.1 K/mm3 (0.0-0.1); Basophils Percent Auto 0.9 % (0.2-1.2); Eosinophils Absolute Auto 0.2 K/mm3 (0-0.3); Eosinophils Percent Auto 1.8 % (0-4.4); Hematocrit 41.8 % (42.0-52.0); Immature Granulocyte Absolute 0.05 K/mm3 (0.00-0.031); Immature Granulocyte Percent A 0.6 % (0-0.5); Lymphocytes Absolute Auto 0.75 K/mm3 (0.9-3.2); Lymphocytes Percent Auto 8.8 % (18.3-44.2); Mean Corpuscular HGB Conc 33.5 g/dl (32-36); Mean Corpuscular Hemoglobin 28.6 pg (26-34); Mean Corpuscular Volume 85.3 fl (80-100); Mean Platelet Volume 11.5 fl (7.4-10.4); Monocytes Absolute Auto 0.7 K/mm3 (0.1-0.6); Monocytes Percent Auto 7.7 % (2.6-8.5); Neutrophils Absolute Auto 6.9 K/mm3 (1.3-6.7); Neutrophils Percent Auto 80.2 % (45.5-73.1); Platelet Count Result 161 k/mm3 (150-375); Red Cell Distribution Width 14.5 % (11.5-14.5); White Blood Count 8.6 K/mm3 (4.5-10.0)
[2023-02-20] MEDS: FUROSEMIDE INJ 40 MG/4 ML VIAL 20 MG IV PUSH (10:25)
--- NOTE | 2023-02-20 10:30 | ED.GENADULT ---
HPI - General Adult General Chief complaint: Shortness of Breath/Dyspnea Stated complaint: dizzy Time Seen by Provider: 02/20/23 08:03 History of Present Illness HPI narrative: 87-year-old male with history of paroxysmal A-fib presenting with several days of generalized not feeling well he describes as a lack of pep. Per daughter at bedside, he is usually quite energetic, but he called the nurse at the intermediate last night stating that he really didn't feel too good. Per daughter at bedside he never complains so this was worrisome, and he was supposed to have cardiac testing etc but after his he put off all the testing. Related Data Home Medications Medication Instructions Recorded Confirmed allopurinol 300 mg tablet 300 mg PO DAILY 09/16/21 02/20/23 aspirin 81 mg tablet 81 mg PO DAILY 09/16/21 02/20/23 atorvastatin 20 mg tablet 20 mg PO HS 09/16/21 02/20/23 losartan 50 mg tablet 50 mg PO DAILY 09/16/21 02/20/23 omeprazole 20 mg tablet,delayed 20 mg PO BID 09/16/21 02/20/23 release rivaroxaban 20 mg tablet (Xarelto) 20 mg PO DAILY 09/16/21 02/20/23 Allergies Allergy/AdvReac Type Severity Reaction Status Date / Time Penicillins Allergy Rash Verified 02/20/23 07:30 Sulfa (Sulfonamide Allergy Hives Verified 02/20/23 07:30 Antibiotics) Review of Systems Review of Systems: CONST: Generalized weakness HEENT: No sore throat C/V: No chest pain RESP: No cough GI: No abdominal pain : No dysuria. M/S: Left wrist pain; legs feel heavy SKIN: No rash. NEURO: Some slight tingling to left wrist which resolved PSYCH: [No depression] [facility] Past Medical History Medical History (Updated 02/20/23 @ 16:16 by Sandy Peña MD) Barretts esophagus Benign prostatic hyperplasia Chronic anticoagulation Gastroesophageal reflux disease Gout Hyperlipidemia Hypertension Paroxysmal atrial fibrillation Pituitary tumor Surgical History Surgical History (Updated 02/20/23 @ 13:49 by Elida Peters PA-C) History of cataract extraction History of pituitary surgery Family History Family History Mother Heart disease Hypertension Father Hypertension Heart disease Social History Social History (Updated 02/20/23 @ 13:50 by Elida Peters PA-C) Social History: Surrogate medical decision maker: Emily Jenkins, daughter. Code status: Full code. Smoking status: Former smoker Alcohol intake: never Alcohol use details: quit 48 years ago Substance use: never Lack of Transportation: No Lack of Food: Never True Current Housing: I Have Housing Concerned About Future Housing: No Difficulty Paying Gas/Electric Bills: No Difficulty Paying for Meds: No Currently Unemployed: No Education: High School Diploma/GED Difficulty w/ Childcare or Family Care: No Living arrangements: assisted living Additional living arrangements comments: . Lives in assisted living at [facility]. Occupation/Education: retired Spiritual care concerns: No Agree to blood products: Yes Exam Narrative: EXAMINATION OF ORGAN SYSTEMS/BODY AREAS: Constitutional: Vital signs per nursing GENERAL:[No acute distress, non-toxic appearing.] HEAD: Normal with no signs of head trauma. EYES: EOMI, conjunctiva normal ENT: Hearing grossly intact LUNGS: Nonlabored breathing. HEART: [Regular rate and rhythm] ABD: [Soft], [nontender to palpation] EXT: Normal range of motion, some swelling bilateral arms worse L wrist without severe pain or tenderness with ROM SKIN: [No rashes or lesions.] NEURO: [Alert. No gross focal sensory or strength deficits.] PSYCH: Normal affect Course Vital Signs Vital signs: Vital Signs Temperature 98.6 F 02/20/23 07:23 Pulse Rate 100 02/20/23 07:23 Respiratory Rate 20 02/20/23 07:23 Blood Pressure 122/78 02/20/23 07:23 Pulse Oximetry 97 02/20/23 07:23 Oxygen Delivery Ro
[2023-02-20] MEDS: predniSONE 20 MG TABLET 40 MG PO (10:35)
[2023-02-20 11:22] LABS: Troponin I < 0.012 ng/mL (0.000-0.034)
[2023-02-20 12:12] LABS: Appearance Urine Clear (Clear); Bilirubin Urine Negative (Negative); Blood Urine Negative (Negative); Color Urine Yellow (Yellow); Glucose Urine UA Negative (Negative); Ketones Urine Negative (Negative); Leukocyte Esterase Ur Negative LEU/UL (Negative); Nitrate Urine Negative (Negative); Protein Urine Negative (Negative); Specific Grav Ur 1.008 (1.001-1.035); Urobilinogen Urine 0.2 mg/dL (<2.0)
--- NOTE | 2023-02-20 12:21 | PC.NURSE ---
This patient, Glenn Jenkins, was admitted to 2 Medical Room 240-01. Patient/family oriented to hospital policies and general routines including ID bracelet, bed and alarms, visiting hours, pain management, procedures, bathroom and other care routines, personal items, smoking policy, room service/diet, and visiting hours. Information on how to activate the Rapid Response Team has been discussed. Patient/Family are encouraged to report perceived risks to care and to ask questions if they do not understand what they are told or what they should do.
[2023-02-20 12:36] LABS: Add Urine Microscopic? NO
--- NOTE | 2023-02-20 13:39 | PM.IMHP ---
H&P: HPI History of Present Illness Date/Time: 02/20/23 13:00 Chief Complaint: Dizziness. Narrative: This is a very pleasant 87-year-old male with history of pituitary tumor status post resection, hypertension, hyperlipidemia, paroxysmal atrial fibrillation on chronic anticoagulation, valvular disease, gastroesophageal reflux disease, Guerrier esophagus, benign prostatic hyperplasia, and gout who presented to the emergency department via EMS from [facility] for evaluation of dizziness. The patient provides the following history though he does seem to have some memory issues and his son provides additional information with the patient's permission. Two nights ago he got up to use the bathroom and reports feeling a bit dizzy at that time. He did not necessarily feel as though he was going to pass out however he denies overt vertigo as well. By the time the morning came around he was feeling fine with regards to the dizziness however his left arm was sore and he reports having issues getting his left hand to do what he wanted it to do. Those symptoms seemed to pass quickly and he had an okay day. Last night he once again started to feel dizzy and this morning when he got ready for breakfast he tells me he was ?feeling out of sorts? but he cannot really elaborate on that. 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 Nursing staff apparently thought he seems short of breath however the patient adamantly denied that to me. He was brought in for evaluation and it looks like his vital signs were stable on arrival to the ED. CMP and CBC were pretty unremarkable. Chest x-ray showed no active pulmonary disease but did note showed moderate hyperinflation, cardiomegaly, and aortic atherosclerosis EKG showed a sinus rhythm with sinus arrhythmia and first-degree AV block, right bundle-branch block, and left anterior fascicular block. In the ED he was given a dose of IV furosemide and p.o. prednisone. He is being admitted in this setting for further treatment and evaluation. At the time my evaluation feels fine and has no active complaints. He denies current dizziness, vertigo, visual changes, facial droop, difficulty speaking and swallowing, focal weakness, paresthesias chest pain, pleuritic pain, palpitations, sensations of racing heart, shortness a breath, orthopnea, paroxysmal nocturnal dyspnea, nausea, vomiting, diarrhea, dysuria, and worsening lower extremity edema from baseline. Of note he is followed by a search engine optimization manager affiliated with [facility] and according to the son the patient has valvular disease and there had been discussions about him needing a pacemaker sometime in the future. Review of Systems Review of Systems: Twelve systems were reviewed and are negative except for as per HPI. [facility] Past Medical History Medical History Barretts esophagus Benign prostatic hyperplasia Chronic anticoagulation Gastroesophageal reflux disease Gout Hyperlipidemia Hypertension Paroxysmal atrial fibrillation Pituitary tumor Surgical History Surgical History (Updated 02/20/23 @ 19:59 by Elida Peters PA-C) History of cataract extraction History of partial thyroidectomy History of pituitary surgery Family History Family History Mother Heart disease Hypertension Father Hypertension Heart disease Social History Social History (Updated 02/20/23 @ 13:50 by Elida Peters PA-C) Social History: Surrogate medical decision maker: Emily Jenkins, daughter. Code status: Full code. Smoking status: Former smoker Alcohol intake: never Alcohol use details: quit 48 years ago Substance use: never Lack of Transportation: No Lack of Food: Never True Current Housing: I Have Hous
[2023-02-20] MEDS: PANTOPRAZOLE 40 MG TABLET PO (21:55)
[2023-02-20] MEDS: RIVAROXABAN 20 MG TABLET PO (21:56)
[2023-02-20] MEDS: ATORVASTATIN 20 MG TABLET PO (21:56)
[2023-02-21] VITALS (7 sets, daily range): BP systolic 129–157; BP diastolic 70–89; PULSE 61–101; RESP 18; TEMP 36.1–36.2; O2SAT 98–100
[2023-02-21 05:27] LABS: Hematocrit 40.5 % (42.0-52.0); Hemoglobin 13.6 g/dL (14.0-18.0); Mean Corpuscular HGB Conc 33.6 g/dl (32-36); Mean Corpuscular Hemoglobin 29.1 pg (26-34); Mean Corpuscular Volume 86.7 fl (80-100); Mean Platelet Volume 11.6 fl (7.4-10.4); Platelet Count Result 155 k/mm3 (150-375); Red Blood Count 4.67 M/mm3 (4.6-6.20); Red Cell Distribution Width 14.5 % (11.5-14.5); White Blood Count 9.4 K/mm3 (4.5-10.0)
[2023-02-21 05:47] LABS: Anion Gap 5 mmol/L (8-16); Blood Urea Nitrogen 24 mg/dL (9-20); Calcium 8.8 mg/dL (8.4-10.2); Carbon Dioxide 29 mmol/L (22-30); Chloride 101 mmol/L (98-107); Estimated CRCL calculation 57 ml/min; Estimated Glomerular Filt Rate > 60; Glucose 138 mg/dL (65-110); Magnesium 2.1 mg/dL (1.6-2.3); Sodium 135 mmol/L (137-145)
[2023-02-21] MEDS: POTASSIUM CHLORIDE 20 MEQ ER TABLET 40 MEQ PO ×2 (09:22→12:29)
[2023-02-21] MEDS: allopurinoL 300 MG TABLET PO (09:22)
[2023-02-21] MEDS: ASPIRIN 81 MG CHEWABLE TABLET PO (09:23)
[2023-02-21] MEDS: PANTOPRAZOLE 40 MG TABLET PO (09:23)
[2023-02-21] MEDS: LOSARTAN POTASSIUM 50 MG TABLET PO (09:23)
[2023-02-21 10:46] LABS: Hemoglobin A1C 6.7 % (<5.7)
--- NOTE | 2023-02-21 13:37 | PM.IMPN ---
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 Staff at his nursing facility thought he was short of breath as well however he adamantly denies that to me. Labs, imaging, EKG, and all reports were personally reviewed. Initial workup in the ED was pretty unremarkable. Given reports of shortness of breath he was given a dose of IV Lasix and p.o. prednisone in the ED though his history and physical findings do not suggest volume overload or bronchospasm. He does have mild lower extremity edema which she states is not unusual for him and in fact is better than baseline. He also denies feeling short of breath but again he seems a bit forgetful. Unfortunately it is difficult to say why he has been feeling dizzy as he has difficulties describing exactly what it is he has been feeling. Check orthostatic vital signs. Brain CT ordered to evaluate for possible CVA given the fact that he also had difficulties using his left hand for brief period of time yesterday as above. 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 Echo has been ordered for further evaluation. He is currently in a sinus rhythm. Blood pressures were reviewed and they have been stable. Initiate fall precautions. Check fasting glucose and hemoglobin A1c given elevated random glucose. His home medications will be reviewed and resumed as appropriate. Subjective Date/time seen: 02/21/23 13:37 Interval history: Admitted 02/20 after a vague staring spell witnessed by another facility resident but not recollected by the patient. He notes that he felt a little out of sync 02/20 because he did not have his usual AM defecation. However, after defecating today he feels fine. Tolerated breakfast and currently working with PT/OT w/o issues. Denied cp, sob, palpitations. Denied GI/ issues. Denied abnl bleeding. Denied focal weakness or numbness. Denied headache or dizziness. Review of Systems Review of Systems: All systems reviewed & are unremarkable except as noted in HPI and below Exam Narrative: HEENT: PERRL, sclerae nonicteric, pharyngeal mucosa pink and intact NECK: No JVD, adenopathy, or thyromegaly CHEST: Clear to auscultation. Normal effort. HEART: NL S1/S2, regular, no murmur ABDOMEN: BS+, soft, nontender, no mass, no bruits EXTREMITIES: No cyanosis, edema, or clubbing NEUROLOGIC: CN intact and symmetric to inspection. DTR's 2+ at BTK, absent at ankles. Tone and strength symmetric and intact. FTN intact. No fix or drift. Gait stable with walker. MUSCULOSKELETAL: Tone and strength symmetric. No tremor or rigidity. PSYCH: Alert. Oriented to person, knows he is in a hospital but not which one, thinks year is 2013 and does not know month. Objective Data Vital Signs Vital Signs: Vital Signs - 24 hr 02/20/23 14:00 02/20/23 16:00 02/20/23 19:21 Temperature 97.4 F L 97.6 F Pulse Rate 86 81 73 Respiratory Rate 18 18 Blood Pressure 150/88 H Pulse Oximetry 95 93 Oxygen Delivery 02/20/23 19:29 02/20/23 19:31 02/20/23 22:00 Temperature 97.7 F 97.3 F L 97
--- NOTE | 2023-02-21 14:46 | PM.DS ---
DS: Admitting Diagnosis Discharge Date 02/21/2023 Admitting Diagnosis Spell of undetermined etiology DS: Discharge Diagnosis Discharge Diagnosis (1) Dizziness: Code(s): R42 - Dizziness and giddiness Status: Acute (2) Cardiomegaly: Code(s): I51.7 - Cardiomegaly Status: Acute (3) Paroxysmal atrial fibrillation: Code(s): I48.0 - Paroxysmal atrial fibrillation Status: Acute (4) Chronic anticoagulation: Code(s): Z79.01 - [facility] (current) use of anticoagulants Status: Acute (5) Hypertension: Code(s): I10 - Essential (primary) hypertension Status: Acute (6) Benign prostatic hyperplasia: Code(s): N40.0 - Benign prostatic hyperplasia without lower urinary tract symptoms Status: Acute (7) Hyperglycemia: Code(s): R73.9 - Hyperglycemia, unspecified Status: Acute DS: Summary Hospital Course Hospital Course: This pleasant 87-year-old gentleman was admitted February 20 due to a spell that occurred during breakfast on that date. He was at assisted living facility and complained of not feeling well. He complained of some dizziness and purportedly of some shortness of breath although he later denied it. He also had some pain in left wrist. He has a history of acute gout in left wrist in the past. He had per did well with prednisone for a short period of time. He had been started on prophylactic allopurinol for that. He had no further spells during hospitalization. 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 He had a new sinus arrhythmia. On telemetry had no pauses and had frequent unifocal PVCs. He had no symptoms during hospitalization. On the date of discharge she felt much better and tolerated physical therapy and occupational therapy very well. He ambulated and engaged in conversation simultaneously without shortness of breath or dizziness. After detailed discussion at bedside with the patient and his daughter they elected to return to his assisted living facility on the day of discharge 02/21/2023. Labs are unremarkable including a stable hemoglobin of 13.6. Hemoglobin A1c was 6.7 consistent with impaired glucose tolerance. Creatinine was 0.9 BUN 24. Sodium was 136 and potassium 3.7 at admission. He did receive 1 dose of furosemide 20 mg IV in the emergency department and on the day of discharge his potassium was 3.0 he did receive 40 mEq of potassium p.o. twice prior to discharge. He had no arrhythmias associated with the mild hypokalemia. Chest x-ray was unremarkable. Magnesium was 2.[address] of the brain showed evidence for atherosclerosis and cerebral and cerebellar atrophy without acute changes of tumor stroke or bleed. He tolerated his diet well and was at his baseline mental status. He defecated and urinated independently without incontinence. His gait was stable with walker. Time Spent with Patient Time attestation: Total time spent providing and/or coordinating discharge services: Exam Narrative: HEENT: PERRL, sclerae nonicteric, pharyngeal mucosa pink and intact NECK: No JVD, adenopathy, or thyromegaly CHEST: Clear to auscultation. Normal effort. HEART: NL S1/S2, regular, no murmur ABDOMEN: BS+, soft, nontender, no mass, no bruits EXTREMITIES: No cyanosis, edema, or clubbing NEUROLOGIC: CN intact and symmetric to inspection. DTR's 2+ at BTK, absent at ankles. Tone and strength symmetric and intact. FTN intact. No fix or drift. Gait stable with walker. MUSCULOSKELETAL: Tone and strength symmetric. No tremor or rigidity. Mild increase in size of left wrist versus right with no erythema or tenderness. PSYCH: Alert. Oriented to person, knows he is in a hospital but not which one, thinks year is 2013 and does not know month. ? DS: Data Data Completed and Pending Labs on day of discharge: Labs from last 24 hours 02/21/23 04:50 WBC 9.4 RBC
== END 2023-02-21 15:55 ==
LOC: ANHED 08:03 → ANH2MED 12:23
PROVIDERS: Physician Assistant; Admitting Provider Internal Medicine; Emergency Provider Emergency Medicine; PCP Student in an Organized Health Care Education/Training Program; Visit Provider Internal Medicine
DX: R42 Dizziness and giddiness (principal); I48.0 Paroxysmal atrial fibrillation; I11.0 Hypertensive heart disease with heart failure; I50.9 Heart failure, unspecified; N40.0 Benign prostatic hyperplasia without lower urinary tract symptoms; R73.9 Hyperglycemia, unspecified; K22.70 Barrett's esophagus without dysplasia; K21.9 Gastro-esophageal reflux disease without esophagitis; R06.02 Shortness of breath; I44.0 Atrioventricular block, first degree; I45.2 Bifascicular block; G31.9 Degenerative disease of nervous system, unspecified; E78.5 Hyperlipidemia, unspecified; E23.7 Disorder of pituitary gland, unspecified; I70.0 Atherosclerosis of aorta; I45.10 Unspecified right bundle-branch block; M10.9 Gout, unspecified; R94.31 Abnormal electrocardiogram [ECG] [EKG]; Z86.39 Personal history of other endocrine, nutritional and metabolic disease; Z98.890 Other specified postprocedural states; Z87.891 Personal history of nicotine dependence; Z87.898 Personal history of other specified conditions; Z79.82 Long term (current) use of aspirin; Z79.01 Long term (current) use of anticoagulants; Z79.899 Other long term (current) drug therapy; Z82.49 Family history of ischemic heart disease and other diseases of the circulatory system
CPT/HCPCS: 36415; 70450; 71046; 80048; 80053; 81003; 83036; 83735; 83880; 84484; 85025; 85027; 93005; 93880; 96374; 97161; 99285; A9270; G0378; J1940; J7512

== ENCOUNTER 2023-08-19 19:00 | Emergency (ER) | payer MEDICARE, SELFPAY ==
--- NOTE | ~2023-08-19 | XR_ITS ---
EXAMINATION: XR ankle LT min 3V DATE: 08/19/2023 19:55 INDICATION: Left ankle pain. Fall. TECHNIQUE: 3 views of left ankle were obtained. COMPARISON: None. FINDINGS: Bone alignment is normal. No fracture. There is mild midfoot osteoarthritis. There are enth esophytes at the posterior and plantar aspects of calcaneal tuberosity. IMPRESSION: 1. Mild midfoot osteoarthritis. Reviewed, dictated and finalized at location E. EPSY PHYSICIAN
--- NOTE | ~2023-08-19 | XR_ITS ---
EXAMINATION: XR hip LT 2V w AP pelvis DATE: 08/19/2023 19:55 INDICATION: Left hip pain. TECHNIQUE: An anteroposterior view of the pelvis and 2 views of left hip were obtained. COMPARISON: None. FINDINGS: Bone alignment is normal. No fracture. There is moderate lumbar spondylosis. There is moder ate osteoarthritis of the hips. IMPRESSION: 1. Moderate osteoarthritis of the hips. Reviewed, dictated and finalized at location E. KEN BUYER
--- NOTE | ~2023-08-19 | XR_ITS ---
EXAMINATION: XR knee LT 3V DATE: 08/19/2023 19:55 INDICATION: Left knee pain. Fall. TECHNIQUE: 4 views of left knee were obtained. COMPARISON: None. FINDINGS: Bone alignment is normal. No fracture. There is mild tricompartmental osteoarthritis. There is chondrocalcinosis of the menisci. No knee joint effusion. IMPRESSION: 1. Mild left knee osteoarthritis. Reviewed, dictated and finalized at location E. CLIPPER
--- NOTE | ~2023-08-19 | CT_ITS ---
EXAMINATION: CT brain wo con DATE: 08/19/2023 20:04 INDICATION: Head injury. TECHNIQUE: Computed tomography (CT) of the head was performed without intravenous contrast. The mA wa s adjusted according to patient size. Iterative reconstruction technique was employed. The dose-lengt h product was 681.00 mGy-cm. COMPARISON: Head CT 02/21/2023 FINDINGS: There is no intracranial hemorrhage, acute infarction, or abnormal intracranial mass lesion . The ventricles are normal in size. There is mucosal thickening in the paranasal sinuses. There are likely changes of ocular lens replacement surgeries. The mastoid air cells are normal. IMPRESSION: 1. Normal brain. Reviewed, dictated and finalized at location E. SMISSION SUPERVISOR IMPRESSION: 1. Normal brain.
--- NOTE | ~2023-08-19 | CT_ITS ---
EXAMINATION: CT cervical spine wo con DATE: 08/19/2023 20:04 INDICATION: Head injury. TECHNIQUE: Computed tomography (CT) of the cervical spine was performed without intravenous contrast. Automated exposure control and iterative reconstruction technique were employed. The dose-length pro duct was 337.86 mGy-cm. COMPARISON: None FINDINGS: There is 2 mm anterolisthesis of C4 on C5 and C6 on C7. There is 10 degrees dextroscoliosis of cervicothoracic spine. There is mild chronic anterior wedging of T4 vertebral body. There is valarie rely decreased disc height at C5-C6. The following disc levels are specifically discussed: C2-C3: There is mild bilateral uncovertebral joint osteoarthritis. There is mild bilateral facet join t osteoarthritis. There is no neural foraminal stenosis. There is no central canal stenosis. C3-C4: There is mild bilateral uncovertebral joint osteoarthritis. There is severe bilateral facet eliot int osteoarthritis. There is no neural foraminal stenosis. There is no central canal stenosis. C4-C5: There is mild bilateral uncovertebral joint osteoarthritis. There is severe bilateral facet eliot int osteoarthritis. There is mild bilateral neural foraminal stenosis. There is no central canal sten osis. C5-C6: There is severe bilateral uncovertebral joint osteoarthritis. There is severe bilateral facet joint osteoarthritis. There is mild bilateral neural foraminal stenosis. There is mild central canal stenosis. C6-C7: There is mild bilateral uncovertebral joint osteoarthritis. There is moderate right and severe left facet joint osteoarthritis. There is mild left neural foraminal stenosis. There is mild central canal stenosis. C7-T1: There is no uncovertebral joint osteoarthritis. There is severe right and mild left facet join t osteoarthritis. There is no neural foraminal stenosis. There is no central canal stenosis. IMPRESSION: 1. No fracture. 2. Severe cervical spondylosis. Reviewed, dictated and finalized at location E. F ORDER DISPATCHER
--- NOTE | ~2023-08-19 | XR_ITS ---
EXAMINATION: XR shoulder LT min 2V DATE: 08/19/2023 19:55 INDICATION: Left shoulder pain. TECHNIQUE: 4 views of left shoulder were obtained. COMPARISON: None. FINDINGS: Bone alignment is normal. No fracture. There is mild osteoarthritis of glenohumeral joint a nd acromioclavicular joint. IMPRESSION: 1. Mild polyarticular osteoarthritis. Reviewed, dictated and finalized at location E. RTISING SALES ASSISTANT
[2023-08-19 19:01] VITALS: BP 122/83; PULSE 102; RESP 20; TEMP 36.2; O2SAT 99
[2023-08-19] MEDS: HYDROcodone/acetaminophen (*CRX) 5-325 MG TABLET 1 TAB PO (20:08)
--- NOTE | 2023-08-19 20:17 | ED.GENADULT ---
HPI - General Adult General Chief complaint: Fall Stated complaint: fell Time Seen by Provider: 08/19/23 19:10 History of Present Illness HPI narrative: Patient is a 8-year-old gentleman who presents emergency department with chief complaint of fall. Patient reports that he was sitting on the toilet and a family member showed to the house and was knocking on the door the patient got up off the toilet did not pull his pants tripped over his pants and fell to the ground patient states this happened this afternoon reports he took some Tylenol and reports that as the has progressed he has become progressively more sore in the left lower extremity and left shoulder. The patient is on anticoagulants and is unsure if he struck his head but reports no loss of consciousness. Related Data Home Medications Medication Instructions Recorded Confirmed allopurinol 300 mg tablet 300 mg PO DAILY 09/16/21 02/20/23 aspirin 81 mg tablet 81 mg PO DAILY 09/16/21 02/20/23 atorvastatin 20 mg tablet 20 mg PO HS 09/16/21 02/20/23 losartan 50 mg tablet 50 mg PO DAILY 09/16/21 02/20/23 omeprazole 20 mg tablet,delayed 20 mg PO BID 09/16/21 02/20/23 release rivaroxaban 20 mg tablet (Xarelto) 20 mg PO DAILY 09/16/21 02/20/23 Allergies Allergy/AdvReac Type Severity Reaction Status Date / Time Penicillins Allergy Rash Verified 02/20/23 07:30 Sulfa (Sulfonamide Allergy Hives Verified 02/20/23 07:30 Antibiotics) Review of Systems Review of Systems: A 10 system review of systems was completed on the patient and is negative except for what is stated in the HPI. Nursing and ancillary documentation was reviewed. FOR[facility]LY [facility], [facility] Past Medical History Medical History Barretts esophagus Benign prostatic hyperplasia Chronic anticoagulation Gastroesophageal reflux disease Gout Hyperlipidemia Hypertension Paroxysmal atrial fibrillation Pituitary tumor Surgical History Surgical History History of cataract extraction History of partial thyroidectomy History of pituitary surgery Family History Family History Mother Heart disease Hypertension Father Hypertension Heart disease Social History Social History Social History: Surrogate medical decision maker: Emily Jenkins, daughter. Code status: Full code. Smoking status: Former smoker Alcohol intake: never Alcohol use details: quit 48 years ago Substance use: never Lack of Transportation: No Lack of Food: Never True Current Housing: I Have Housing Concerned About Future Housing: No Difficulty Paying Gas/Electric Bills: No Difficulty Paying for Meds: No Currently Unemployed: No Education: High School Diploma/GED Difficulty w/ Childcare or Family Care: No Living arrangements: assisted living Additional living arrangements comments: . Lives in assisted living at [facility]. Occupation/Education: retired Spiritual care concerns: No Agree to blood products: Yes Exam Narrative: GENERAL: Well-appearing, well-nourished, and in no acute distress. HEAD: Normocephalic, atraumatic. EYES: PERRLA and EOMI. ENT: Nares clear, no rhinorrhea or epistaxis. Mucous membranes moist. NECK: Supple. CHEST: Clear to auscultation. No respiratory distress. HEART: Regular rate and rhythm. No murmur heard. Normal peripheral pulses. ABDOMEN: Soft, nontender, nondistended, normal active bowel sounds. EXTREMITIES: Normal range of motion. No edema. tenderness to palpation the left shoulder, left hip and left knee SKIN: Warm, dry, no rash. NEURO: No focal deficits. Alert and oriented x3. GCS 15 PSYCH: Normal mood and affect. Course Vital Signs Vital signs: Vital Signs Temperature 36.2 C L 08/19/23 19:0
[2023-08-19 20:23] VITALS: BP 151/94; PULSE 83; RESP 18; O2SAT 100
--- NOTE | 2023-08-19 20:44 | PC.NURSE ---
Report given to Belle at [facility]
== END 2023-08-19 20:46 ==
PROVIDERS: Emergency Provider Emergency Medicine; PCP Student in an Organized Health Care Education/Training Program
DX: S83.92XA Sprain of unspecified site of left knee, initial encounter (principal); S46.912A Strain of unspecified muscle, fascia and tendon at shoulder and upper arm level, left arm, initial encounter; I10 Essential (primary) hypertension; I48.0 Paroxysmal atrial fibrillation; E78.5 Hyperlipidemia, unspecified; E89.0 Postprocedural hypothyroidism; N40.0 Benign prostatic hyperplasia without lower urinary tract symptoms; K22.70 Barrett's esophagus without dysplasia; K21.9 Gastro-esophageal reflux disease without esophagitis; M10.9 Gout, unspecified; Z98.49 Cataract extraction status, unspecified eye; Z87.891 Personal history of nicotine dependence; Z79.82 Long term (current) use of aspirin; Z79.01 Long term (current) use of anticoagulants; W18.09XA Striking against other object with subsequent fall, initial encounter
CPT/HCPCS: 70450; 72125; 73030; 73502; 73562; 73610; 99284; A9270

== ENCOUNTER 2023-11-27 19:20 | Emergency (ER) | payer MEDICARE, SELFPAY ==
[2023-11-27 19:23] VITALS: BP 163/106; PULSE 93; RESP 19; TEMP 35.9; O2SAT 98
--- NOTE | 2023-11-27 20:39 | ED.DENTAL ---
HPI - Dental/Oral General Chief complaint: Dental/Oral Stated complaint: Left lower gum bleeding, on thinners Time Seen by Provider: 11/27/23 20:30 Source: patient Mode of arrival: ambulatory Limitations: no limitations History of Present Illness HPI Narrative: This is a a 8-year-old male who presents to the ED with chief complaint of left lower gum bleeding for the past 2-1/2 hours. Patient reports he has been dealing with some dental decay and was supposed to have this left lower pole by dental surgeon. They ended up cancelling the surgery because he did not obtain cardiac clearance. Patient is on Xarelto for AFib. He reports the crown of this bleeding tooth came off couple of weeks ago. There was no injury or pain this started the bleeding tonight. He was unable to get through to controlled so he presented here. Denies lightheadedness, syncope or any further complaint. Related Data Home Medications Medication Instructions Recorded Confirmed allopurinol 300 mg tablet 300 mg PO DAILY 09/16/21 02/20/23 aspirin 81 mg tablet 81 mg PO DAILY 09/16/21 02/20/23 atorvastatin 20 mg tablet 20 mg PO HS 09/16/21 02/20/23 losartan 50 mg tablet 50 mg PO DAILY 09/16/21 02/20/23 omeprazole 20 mg tablet,delayed 20 mg PO BID 09/16/21 02/20/23 release rivaroxaban 20 mg tablet (Xarelto) 20 mg PO DAILY 09/16/21 02/20/23 Allergies Allergy/AdvReac Type Severity Reaction Status Date / Time Penicillins Allergy Rash Verified 02/20/23 07:30 Sulfa (Sulfonamide Allergy Hives Verified 02/20/23 07:30 Antibiotics) Review of Systems Review of Systems: All systems as dictated in HPI [facility] Past Medical History Medical History Barretts esophagus Benign prostatic hyperplasia Chronic anticoagulation Gastroesophageal reflux disease Gout Hyperlipidemia Hypertension Paroxysmal atrial fibrillation Pituitary tumor Surgical History Surgical History History of cataract extraction History of partial thyroidectomy History of pituitary surgery Family History Family History Mother Heart disease Hypertension Father Hypertension Heart disease Social History Social History Social History: Surrogate medical decision maker: Emily Jenkins, daughter. Code status: Full code. Smoking status: Former smoker Alcohol intake: never Alcohol use details: quit 48 years ago Substance use: never Lack of Transportation: No Lack of Food: Never True Current Housing: I Have Housing Concerned About Future Housing: No Difficulty Paying Gas/Electric Bills: No Difficulty Paying for Meds: No Currently Unemployed: No Education: High School Diploma/GED Difficulty w/ Childcare or Family Care: No Living arrangements: assisted living Additional living arrangements comments: . Lives in assisted living at [facility]. Occupation/Education: retired Spiritual care concerns: No Agree to blood products: Yes Exam Narrative: GENERAL: Well-appearing, well-nourished, and in no acute distress. HEAD: Normocephalic, atraumatic. EYES: PERRLA and EOMI. ENT: Left lower molar oozing blood. The tooth is rotted. Nares clear, no rhinorrhea or epistaxis. Mucous membranes moist. Oropharynx without tonsillar hypertrophy exudate or other lesions. NECK: Supple. No adenopathy or masses. CHEST: No respiratory distress. Clear to auscultation. No wheezes rales or rhonchi HEART: Regular rate and rhythm. No murmur heard. Normal peripheral pulses. ABDOMEN: Soft, nontender, nondistended, normal active bowel sounds. MSK: Normal range of motion. No edema. SKIN: Warm, dry, no rash. NEURO: Alert and oriented x3. No focal deficits. PSYCH: Normal mood and affect. Course Reevaluat
[2023-11-27 21:14] LABS: Basophils Absolute Auto 0.1 K/mm3 (0.0-0.1); Eosinophils Absolute Auto 0.4 K/mm3 (0-0.3); Eosinophils Percent Auto 5.6 % (0-4.4); Hematocrit 40.9 % (42.0-52.0); Hemoglobin 13.8 g/dL (14.0-18.0); Immature Granulocyte Absolute 0.03 K/mm3 (0.00-0.031); Immature Granulocyte Percent A 0.4 % (0-0.5); Lymphocytes Absolute Auto 1.31 K/mm3 (0.9-3.2); Lymphocytes Percent Auto 18.7 % (18.3-44.2); Mean Corpuscular HGB Conc 33.7 g/dl (32-36); Mean Corpuscular Hemoglobin 29.1 pg (26-34); Mean Corpuscular Volume 86.1 fl (80-100); Mean Platelet Volume 11.8 fl (7.4-10.4); Monocytes Absolute Auto 0.7 K/mm3 (0.1-0.6); Monocytes Percent Auto 9.7 % (2.6-8.5); Neutrophils Absolute Auto 4.5 K/mm3 (1.3-6.7); Neutrophils Percent Auto 64.6 % (45.5-73.1); Platelet Count Result 155 k/mm3 (150-375); Red Blood Count 4.75 M/mm3 (4.6-6.20); Red Cell Distribution Width 14.4 % (11.5-14.5)
[2023-11-27 21:24] LABS: Alanine Aminotransferase 19 U/L (6-50); Albumin Level 3.9 g/dL (3.5-5.1); Alkaline Phosphatase 89 U/L (38-126); Anion Gap 8 mmol/L (4-12); Aspartate Amino Transferase 25 U/L (17-59); Bilirubin,Total 0.6 mg/dL (0.2-1.3); Blood Urea Nitrogen 24 mg/dL (9-20); Calcium 9.1 mg/dL (8.4-10.2); Carbon Dioxide 27 mmol/L (22-30); Chloride 103 mmol/L (98-107); Estimated Glomerular Filt Rate > 60; Glucose 173 mg/dL (65-110); Potassium 3.3 mmol/L (3.4-5.0); Sodium 138 mmol/L (137-145)
[2023-11-27 21:33] VITALS: BP 170/105; PULSE 85; RESP 18; O2SAT 100
[2023-11-27 21:48] LABS: INR 1.4; Partial Thromboplastin Time 35.5 Seconds (22.3-36.8); Prothrombin Time 17.8 Seconds (11.1-14.7)
[2023-11-27] MEDS: TRANEXAMIC ACID 1,000 MG/10 ML AMPUL 1000 MG TOPICAL (22:09)
--- NOTE | 2023-11-27 23:12 | PC.NURSE ---
Report received from BK Diaz. Assumed care of patient at this time.
[2023-11-28 00:12] VITALS: BP 162/80; PULSE 80; RESP 16; O2SAT 99
== END 2023-11-28 00:14 | disposition home or self-care (01) ==
PROVIDERS: Emergency Provider Physician Assistant; PCP Student in an Organized Health Care Education/Training Program
DX: K08.89 Other specified disorders of teeth and supporting structures (principal); I48.0 Paroxysmal atrial fibrillation; I10 Essential (primary) hypertension; E78.5 Hyperlipidemia, unspecified; E89.0 Postprocedural hypothyroidism; N40.0 Benign prostatic hyperplasia without lower urinary tract symptoms; K22.70 Barrett's esophagus without dysplasia; K21.9 Gastro-esophageal reflux disease without esophagitis; M10.9 Gout, unspecified; Z87.891 Personal history of nicotine dependence; Z98.49 Cataract extraction status, unspecified eye; Z79.01 Long term (current) use of anticoagulants
CPT/HCPCS: 36415; 80053; 85025; 85610; 85730; 99283

== ENCOUNTER 2024-03-26 18:33 | Emergency (ER) | payer MEDICARE, SELFPAY ==
[2024-03-26 18:39] VITALS: BP 168/95; PULSE 86; RESP 18; TEMP 36.6; O2SAT 97
[2024-03-26 21:23] VITALS: BP 167/102; PULSE 75; RESP 15; RESP 22; O2SAT 97; O2SAT 98
[2024-03-26 23:07] VITALS: BP 175/104; PULSE 72; RESP 18; O2SAT 99
[2024-03-27 00:08] VITALS: BP 160/99; PULSE 73; RESP 18; O2SAT 95
--- NOTE | 2024-03-27 00:26 | ED.GENADULT ---
HPI - General Adult General Chief complaint: Recheck/Abnormal Lab/Rx Stated complaint: HTN Time Seen by Provider: 03/26/24 22:42 History of Present Illness HPI narrative: this is an 88-year-old male with dementia presenting ED after an elevated blood pressure with her wellness event. Patient had his blood pressure checked at a random screening event. It was elevated. That then asked him orientation questions that he was unable to answer although he does have dementia at baseline. The patient has no physical complaints it is time. He is here with his daughter who says he is at his baseline mental status. Related Data Home Medications Medication Instructions Recorded Confirmed allopurinol 300 mg tablet 300 mg PO DAILY 09/16/21 02/20/23 aspirin 81 mg tablet 81 mg PO DAILY 09/16/21 02/20/23 atorvastatin 20 mg tablet 20 mg PO HS 09/16/21 02/20/23 losartan 50 mg tablet 50 mg PO DAILY 09/16/21 02/20/23 omeprazole 20 mg tablet,delayed 20 mg PO BID 09/16/21 02/20/23 release rivaroxaban 20 mg tablet (Xarelto) 20 mg PO DAILY 09/16/21 02/20/23 Allergies Allergy/AdvReac Type Severity Reaction Status Date / Time Penicillins Allergy Rash Verified 03/26/24 18:34 Sulfa (Sulfonamide Allergy Hives Verified 03/26/24 18:34 Antibiotics) [facility] Past Medical History Medical History Barretts esophagus Benign prostatic hyperplasia Chronic anticoagulation Gastroesophageal reflux disease Gout Hyperlipidemia Hypertension Paroxysmal atrial fibrillation Pituitary tumor Surgical History Surgical History History of cataract extraction History of partial thyroidectomy History of pituitary surgery Family History Family History Mother Heart disease Hypertension Father Hypertension Heart disease Social History Social History Social History: Surrogate medical decision maker: Emily Jenkins, daughter. Code status: Full code. Smoking status: Former smoker Alcohol intake: never Alcohol use details: quit 48 years ago Substance use: never Lack of Transportation: No Lack of Food: Never True Current Housing: I Have Housing Concerned About Future Housing: No Difficulty Paying Gas/Electric Bills: No Difficulty Paying for Meds: No Currently Unemployed: No Education: High School Diploma/GED Difficulty w/ Childcare or Family Care: No Living arrangements: assisted living Additional living arrangements comments: . Lives in assisted living at [facility]. Occupation/Education: retired Spiritual care concerns: No Agree to blood products: Yes Exam Narrative: APPEARANCE: No apparent distress. A&O x2 Head: atraumatic. EYES: EOMI, NOSE: Atraumatic NECK: Trachea midline RESPIRATORY: No increased rate of breathing Clear to auscultation CARDIOVASCULAR: RRR, ABDOMINAL: Non-distended MUSCULOSKELETAl: No obvious deformities NEURO: Alert. Cranial nerves 2-12 grossly intact. Sensation light touch, motor function cerebellar function intact for 4 extremities. Gait exam was normal. SKIN:: Warm, dry. Normal color PSYCHIATRIC: Normal affect Course Vital Signs Vital signs: Vital Signs Temperature 97.9 F 03/26/24 18:39 Pulse Rate 86 03/26/24 18:39 Respiratory Rate 18 03/26/24 18:39 Blood Pressure 168/95 H 03/26/24 18:39 Pulse Oximetry 97 03/26/24 18:39 Oxygen Delivery Room Air 03/26/24 18:39 Temperature 97.9 F 03/26/24 18:39 Pulse Rate 73 03/27/24 00:08 Respiratory Rate 18 03/27/24 00:08 Blood Pressure 160/99 H 03/27/24 00:08 Pulse Oximetry 95 03/27/24 00:08 Oxygen Delivery Room Air 03/26/24 18:39 Medical Decision Making [facility] Narrative Medical decision making narrative: -Course: 88-year
--- NOTE | 2024-03-27 00:44 | PC.NURSE ---
Daughter given discharge instructions as well.
== END 2024-03-27 00:45 ==
PROVIDERS: Emergency Provider Emergency Medicine; PCP Student in an Organized Health Care Education/Training Program
DX: I10 Essential (primary) hypertension (principal); F03.90 Unspecified dementia, unspecified severity, without behavioral disturbance, psychotic disturbance, mood disturbance, and anxiety; K21.9 Gastro-esophageal reflux disease without esophagitis; E78.5 Hyperlipidemia, unspecified; I48.0 Paroxysmal atrial fibrillation; Z79.01 Long term (current) use of anticoagulants; Z79.82 Long term (current) use of aspirin; Z87.891 Personal history of nicotine dependence
CPT/HCPCS: 99281

== ENCOUNTER 2024-09-24 08:21 | Emergency (ER) | payer MEDICARE, SELFPAY ==
[2024-09-24 08:24] VITALS: BP 65/57; PULSE 113; RESP 26; TEMP 36.6; O2SAT 93
[2024-09-24 08:55] LABS: Hemoglobin 12.9 g/dL (14.0-18.0); Mean Corpuscular HGB Conc 33.1 g/dl (32-36); Mean Corpuscular Hemoglobin 28.7 pg (26-34); Mean Corpuscular Volume 86.7 fl (80-100); Mean Platelet Volume 12.8 fl (7.4-10.4); Platelet Count Result 212 k/mm3 (150-375); Red Cell Distribution Width 14.4 % (11.5-14.5); White Blood Count 15.7 K/mm3 (4.5-10.0)
[2024-09-24 09:00] VITALS: BP 78/63; PULSE 104; RESP 26; TEMP 36.3; O2SAT 96
[2024-09-24 09:03] LABS: INR 1.5; Partial Thromboplastin Time 30.1 Seconds (22.3-36.8); Prothrombin Time 18.6 Seconds (11.1-14.7)
[2024-09-24 09:04] LABS: Alanine Aminotransferase 35 U/L (6-50); Albumin Level 3.2 g/dL (3.5-5.1); Alkaline Phosphatase 100 U/L (38-126); Anion Gap 23 mmol/L (4-12); Aspartate Amino Transferase 29 U/L (17-59); Bilirubin,Total 1.2 mg/dL (0.2-1.3); Blood Urea Nitrogen 80 mg/dL (9-20); Calcium 7.8 mg/dL (8.4-10.2); Carbon Dioxide 12 mmol/L (22-30); Chloride 97 mmol/L (98-107); Estimated Glomerular Filt Rate 17; Glucose 229 mg/dL (65-110); Potassium 3.3 mmol/L (3.4-5.0); Sodium 132 mmol/L (137-145)
[2024-09-24 09:13] LABS: Band Neutrophils Percent 9 % (0-6); Lymphocytes Absolute Manual 0.47 K/mm3 (1.1-4.5); Monocytes Absolute Manual 1.57 K/mm3 (0.1-0.90); Monocytes Percent Manual 10 % (3-9); Neutrophils Absolute Manual 13.65 K/mm3 (1.3-6.7); Neutrophils Percent Manual 78 % (46-73); Total Cells Counted 100
[2024-09-24 09:15] LABS: Platelet Estimate Adequate (Adequate); Schistocytes None Seen
[2024-09-24 09:18] LABS: Burr Cells 1+; Ovalocytes 2+
[2024-09-24] MEDS: SODIUM CHLORIDE 0.9% IV 1,000 ML 999 ML IV CONT ×2 (09:22→09:23)
[2024-09-24 09:28] LABS: Add Urine Microscopic? YES; Appearance Urine Turbid (Clear); Bacteria Urine 1+ /hpf; Bilirubin Urine 1+ (Negative); Blood Urine 3+ (Negative); Color Urine Dark Yellow (Yellow); Glucose Urine UA Negative (Negative); Ketones Urine Negative (Negative); Leukocyte Esterase Ur 2+ LEU/UL (Negative); Need Manual Microscopic Reviewed; Nitrate Urine Negative (Negative); Non Pathogenic Casts >20; Protein Urine 3+ mg/dL (Negative); RBC Urine >100 /hpf (0-2); Specific Grav Ur 1.018 (1.001-1.035); Squamous Epithelial Cell Urine Moderate /hpf (Few); Urobilinogen Urine 0.2 mg/dL (<2.0); WBC Urine 51-100 /hpf (0-3)
--- NOTE | 2024-09-24 09:30 | ED.GENADULT ---
HPI - General Adult General Chief complaint: Fall Stated complaint: unwitnessed glf Time Seen by Provider: 09/24/24 08:22 History of Present Illness HPI narrative: Patient is an 89-year-old male who presents ER after having a unwitnessed fall at his longterm. Poorly responsive for EMS and hypotensive. Patient unable to communicate. The only mumbling. Related Data Home Medications ?Medication ?Instructions ?Recorded ?Confirmed ?Last Taken ?Type allopurinol 300 mg tablet 300 mg PO DAILY 09/16/21 02/20/23 02/19/23 History aspirin 81 mg tablet 81 mg PO DAILY 09/16/21 02/20/23 02/19/23 History atorvastatin 20 mg tablet 20 mg PO HS 09/16/21 02/20/23 02/19/23 History losartan 50 mg tablet 50 mg PO DAILY 09/16/21 02/20/23 02/19/23 History omeprazole 20 mg tablet,delayed 20 mg PO BID 09/16/21 02/20/23 02/19/23 History release rivaroxaban 20 mg tablet (Xarelto) 20 mg PO DAILY 09/16/21 02/20/23 02/19/23 History Allergies Allergy/AdvReac Type Severity Reaction Status Date / Time Penicillins Allergy Rash Verified 03/26/24 18:34 Sulfa (Sulfonamide Allergy Hives Verified 03/26/24 18:34 Antibiotics) Review of Systems Review of Systems: ROS unobtainable: Yes unobtainable due to medical condition PMFSH Past Medical History Medical History (Updated 09/24/24 @ 11:07 by Piyush Cassidy MD) Dementia Chronic anticoagulation Hyperlipidemia Gastroesophageal reflux disease Benign prostatic hyperplasia Paroxysmal atrial fibrillation Gout Pituitary tumor Barretts esophagus Hypertension Surgical History Surgical History History of partial thyroidectomy History of pituitary surgery History of cataract extraction Family History Family History Mother Heart disease Hypertension Father Hypertension Heart disease Social History Social History Social History: Surrogate medical decision maker: Emily Jenkins, daughter. Code status: Full code. Smoking status: Former smoker Alcohol intake: never Alcohol use details: quit 48 years ago Substance use: never Lack of Transportation: No Lack of Food: Never True Current Housing: I Have Housing Concerned About Future Housing: No Difficulty Paying Gas/Electric Bills: No Difficulty Paying for Meds: No Currently Unemployed: No Education: High School Diploma/GED Difficulty w/ Childcare or Family Care: No Living arrangements: assisted living Additional living arrangements comments: . Lives in assisted living at [facility]. Occupation/Education: retired Spiritual care concerns: No Agree to blood products: Yes Exam Narrative: GENERAL: Ill-appearing, well-nourished, and in no acute distress. HEAD: Normocephalic, atraumatic. ENT: Mucous membranes moist. CHEST: Clear to auscultation. No respiratory distress. HEART: Irregular irregular rate and rhythm that is tachycardic. Normal peripheral pulses. ABDOMEN: Soft, nontender, nondistended. EXTREMITIES: Normal range of motion. No edema. SKIN: Warm, dry, no rash. NEURO: Moves all extremities but is other weight neuro alert. Course Course Emergency Course: We discovered later that patient is on hospice for metastatic pancreatic cancer. I have discussed care with patient's daughter Emily as well as with [facility] hospice. Patient is appropriate to be discharged back to [facility] to continue his hospice care. I have written some temporary orders since [facility] has to revoke his hospice and then re-initiate it tomorrow since he went to a non [facility] hospital. Patient did receive 30 milliliter/kilogram IV fluid bolus with improvement of blood pressure but not his heart rate. He is awake alert this time but is not oriented due to his dementia. Vital Signs Vital signs: Vital Signs Temperature 97.9 F 09/24/24 08:24 Pulse Rate 113 H 09/24/24 08:24 Respiratory Rate 26 H 09/24/24 08:24 Blood Pressure 65/57 L 09/24/24 08:24 Pulse Oximetry 93 09/24/24 08:24 Oxygen Delivery Room Air 09/24/24 08:24 Temperature 97.9 F 09/24/24 08:24 Pulse Rate 113 H 09/24/24 08:24 Respiratory Rate 26 H 09/24/24 08:24 Blood Pressure 65/57 L 09/24/24 08:24 Pulse Oximetry 93 09/24/24 08:24 Oxygen Delivery Room Air 09/24/24 08:24 Medical Decision Making Vital Signs Vital Signs: Vital Signs Temperature 97.9 F 09/24/24 08:24 Pulse Rate 113 H 09/24/24 08:24 Respiratory Rate 26 H 09/24/24 08:24 Blood Pressure 65/57 L 09/24/24 08:24 Pulse Oximetry 93 09/24/24 08:24 Oxygen Delivery Room Air 09/24/24 08:24 Temperature 97.9 F 09/24/24 08:24 Pulse Rate 113 H 09/24/24 08:24 Respiratory Rate 26 H 09/24/24 08:24 Blood Pressure 65/57 L 09/24/24 08:24 Pulse Oximetry 93 09/24/24 08:24 Oxygen Delivery Room Air 09/24/24 08:24 Lab Data 09/24/24 08:41 09/24/24 08:41 Labs: Lab Results 09/24/24 09/24/24 Range/Units 08:41 08:42 WBC 15.7 H (4.5-10.0) K/mm3 RBC 4.50 L (4.6-6.20) M/mm3 Hgb 12.9 L (14.0-18.0) g/dL Hct 39.0 L (42.0-52.0) % MCV 86.7 (80-100) fl MCH 28.7 (26-34) pg MCHC 33.1 (32-36) g/dl RDW 14.4 (11.5-14.5) % Plt Count 212 (150-375) k/mm3 MPV 12.8 H (7.4-10.4) fl Immature Gran % (Auto) Not Reportable Neut % (Auto) Not Reportable Lymph % (Auto) Not Reportable [place] % (Auto) Not Reportable Eos % (Auto) Not Reportable Baso % (Auto) Not Reportable Lymph # (Auto) Not Reportable [place] # (Auto) Not Reportable Eos # (Auto) Not Reportable Baso # (Auto) Not Reportable Abs Immat Gran (auto) Not Reportable Absolute Neuts (auto) Not Reportable Absolute Nucleated RBC Not Reportable Total Counted 100 Neutrophils % (Manual) 78 H (46-73) % Band Neutrophils % 9 H (0-6) % Lymphocytes % (Manual) 3.0 L (18-44) % Monocytes % (Manual) 10 H (3-9) % Nucleated RBC % Not Reportable Abs Neuts (Manual) 13.65 H (1.3-6.7) K/mm3 Abs Lymphs (Manual) 0.47 L (1.1-4.5) K/mm3 Abs Monocytes (Manual) 1.57 H (0.1-0.90) K/mm3 Platelet Estimate Adequate (Adequate) Ovalocytes 2+ [place] Cells 1+ Schistocytes None seen PT 18.6 H (11.1-14.7) Seconds INR 1.5 APTT 30.1 (22.3-36.8) Seconds Sodium 132 L (137-145) mmol/L Potassium 3.3 L (3.4-5.0) mmol/L Chloride 97 L (98-107) mmol/L Carbon Dioxide 12 L (22-30) mmol/L Anion Gap 23 H (4-12) mmol/L BUN 80 H D (9-20) mg/dL Creatinine 3.47 H (0.7-1.3) mg/dL Estim Creat Clear Calc Not Reportable Estimated GFR 17 L (59 - ) Glucose 229 H (65-110) mg/dL Lactic Acid 5.0 H* (0.7-2.0) mmol/L Calcium 7.8 L (8.4-10.2) mg/dL Total Bilirubin 1.2 (0.2-1.3) mg/dL AST 29 (17-59) U/L ALT 35 (6-50) U/L Alkaline Phosphatase 100 (38-126) U/L Total Protein 6.0 L (6.3-8.2) g/dL Albumin 3.2 L (3.5-5.1) g/dL Urine Color Pending Urine Appearance Pending Urine pH Pending Ur Specific [place] Pending Urine Protein Pending Urine Glucose (UA) Pending Urine Ketones Pending Ur Blood (Man) Pending Urine Nitrate Pending Urine Bilirubin Pending Urine Urobilinogen Pending Leukocyte Esterase Rfl Pending Influenza A (RT-PCR) Pending Influenza B (RT-PCR) Pending RSV (RT-PCR) Pending SARS-CoV-2 RNA (RT-PCR) Pending Imaging Data Radiologist's impression: ITS Impressions Head CT 09/24/24 09:35 Impression: No intracranial hemorrhage, mass, or acute infarct. Moderate generalized atrophy. Chest X-Ray 09/24/24 09:36 Impression: Clear lungs. ECG Data EKG #1: ECG completion date: 09/24/24 ECG completion time: 08:29 EKG Interpretation: tachycardia (102), atrial fibrillation, non-specific ST changes and RBBB Discharge Plan Discharge Clinical Impression: Severe sepsis, Acute UTI Patient Disposition: NH Detention/Asst Living Condition: Serious Instructions: Antibiotic Form Additional Instructions: Your being sent back to facility with comfort measure orders and hospice will re-initiate everything tomorrow. Patient Language: Monegasque Prescriptions: No Action losartan 50 mg Tablet 50 mg PO DAILY atorvastatin 20 mg Tablet 20 mg PO HS allopurinol 300 mg Tablet 300 mg PO DAILY aspirin 81 mg Tablet 81 mg PO DAILY omeprazole 20 mg Tablet,Delayed Release (Dr/Ec) 20 mg PO BID Xarelto 20 mg Tablet 20 mg PO DAILY prednisone 20 mg tablet 20 mg PO DAILY Qty: 4 0RF Follow-up/Referrals: Masood,DO Anthony [Primary Care Provider] -
[2024-09-24 09:40] LABS: Influenza A QL RT-PCR Negative (Negative); Influenza B QL RT-PCR Negative (Negative); RSV RNA, RT-PCR Negative (Negative); SARS-CoV-2 RNA PCR Negative (Negative)
[2024-09-24 10:00] VITALS: BP 105/53; PULSE 93; RESP 16; TEMP 36.6; O2SAT 100
--- NOTE | 2024-09-24 11:43 | PC.NURSE ---
changed pt depends and provided alberta-care. noted redness to sacrum. applied cream provide comfort to that area and repositioned pt.
[2024-09-24 11:47] LABS: Reflex Lactic Acid Yes or No Add Lactic
--- NOTE | 2024-09-24 11:49 | PC.NURSE ---
large maroon brown emesis. Meds given per ERP
[2024-09-24] MEDS: ONDANSETRON INJ 4 MG/2 ML VIAL IV PUSH (11:50)
== END 2024-09-24 13:30 ==
PROVIDERS: Emergency Provider Emergency Medicine; PCP Student in an Organized Health Care Education/Training Program
DX: A41.9 Sepsis, unspecified organism (principal); R65.20 Severe sepsis without septic shock; N39.0 Urinary tract infection, site not specified; C25.9 Malignant neoplasm of pancreas, unspecified; C79.9 Secondary malignant neoplasm of unspecified site; Z20.822 Contact with and (suspected) exposure to COVID-19; F03.90 Unspecified dementia, unspecified severity, without behavioral disturbance, psychotic disturbance, mood disturbance, and anxiety; I48.0 Paroxysmal atrial fibrillation; I10 Essential (primary) hypertension; E78.5 Hyperlipidemia, unspecified; E89.0 Postprocedural hypothyroidism; N40.0 Benign prostatic hyperplasia without lower urinary tract symptoms; K21.9 Gastro-esophageal reflux disease without esophagitis; K22.70 Barrett's esophagus without dysplasia; M10.9 Gout, unspecified; Z98.49 Cataract extraction status, unspecified eye; Z87.891 Personal history of nicotine dependence; Z79.01 Long term (current) use of anticoagulants; Z79.899 Other long term (current) drug therapy; I45.2 Bifascicular block; W19.XXXA Unspecified fall, initial encounter
CPT/HCPCS: 36415; 70450; 71045; 80053; 81001; 83605; 85025; 85610; 85730; 87040; 87637; 93005; 96361; 96374; 99284; J2405; J7030